=== PATIENT | male | born 1945 | race Caucasian/White ===

== ENCOUNTER 2017-09-17 00:47 | Observation (INO) ==
[2017-09-17 01:17] LABS: Microscopic, Urine URINE MICROSCOPIC (MICROSCOPIC)
[2017-09-17 01:18] LABS: Appearance,Urine CLEAR (Clear); Bilirubin,Urine Negative (Negative); Blood, Urine 2+ (Negative); Color,Urine YELLOW (Yellow); Glucose,Urine (UA) Negative (Negative); Ketones,Urine Negative (Negative); Leukocyte Esterase,Urine Negative (Negative); Protein,Urine Negative (Negative); Specific Gravity, Urine <= 1.005 (1.005-1.030); Urobilinogen,Urine 0.2 EU/dl (0.2)
[2017-09-17 01:19] LABS: Basophils # 0.1 K/mm3 (0-0.2); Basophils % 0.4 % (0.1-2.0); Eosinophils # 0.3 K/mm3 (0.0-0.4); Eosinophils % 2.5 % (0.1-12.0); Hematocrit 52.9 % (42.0-52.0); Hemoglobin 17.4 g/dL (14.1-18.0); Lymphocytes # 1.6 K/mm3 (0.7-4.5); Lymphocytes % 14.6 K/mm3 (10-50); Mean Corpuscular HGB Conc 32.8 g/dL (31.8-35.4); Mean Corpuscular Hemoglobin 30.5 pg (27.0-31.2); Mean Corpuscular Volume 92.9 fl (80-94); Mean Platelet Volume 7.1 fl (7.4-10.4); Monocytes # 0.8 K/mm3 (0.1-1.0); Neutrophils # 8.3 K/mm3 (1.8-7.8); Neutrophils % 75.5 % (37.0-80.0); Platelet Count 341 K/mm3 (142-424); Red Blood Count 5.69 M/mm3 (4.60-6.20); Red Cell Distribution Width 12.2 % (11.5-17.5)
[2017-09-17 01:41] LABS: Bacteria,Urine Trace /lpf; WBC,Urine Occasional #/hpf (0-3)
[2017-09-17 01:43] LABS: Alanine Aminotransferase 28 U/L (12-78); Albumin Level 4.3 gm/dL (3.4-5.0); Albumin/Globulin Ratio 1.3 (1.1-1.8); Alkaline Phosphatase 79 U/L (46-116); Anion Gap 12.5 mEq/L (5-15); Aspartate Amino Transferase 14 U/L (15-37); Bilirubin,Total 0.8 mg/dL (0.2-1.0); Blood Urea Nitrogen 5 mg/dL (7-18); Calcium 8.8 mg/dL (8.5-10.1); Carbon Dioxide 25 mmol/L (21.0-32.0); Chloride 94 mmol/L (98-107); Creatine Kinase 93 U/L (39-308); Globulin 3.2 gm/dl (1.3-3.2); Glucose 140 mg/dL (74-106); Potassium 3.5 mmoL/L (3.5-5.1); Sodium 128 mmol/L (136-145); Total Protein,Serum 7.5 gm/dL (6.4-8.2)
--- NOTE | 2017-09-17 03:44 | Emergency Department Note ---
ED Disposition Clinical Impression: Weakness, Acute urinary retention, Hyponatremia Disposition: Admitted as Observation Condition on Discharge: Fair - Critical Care Critical Care Time: No Attestation: On 09/17/17, the high probability of a clinically significant, sudden or life threatening deterioration of the following system(s) required my full and direct attention, intervention and personal management. The time I documented below is in addition to time spent performing reported procedures but includes the following listed in this critical care notation. Medical Decision Making - Medical Records Medical records reviewed: Yes: I reviewed the patient's medical records. - Dg Inquiry Pt receiving controlled substance: No Vital Signs: 09/17/17 00:48 09/17/17 03:03 Temperature 97.7 F Temperature Source Oral Pulse Rate [Right Radial] 106 H 90 Respiratory Rate 16 16 Blood Pressure [Right Arm] 195/99 145/93 Blood Pressure Mean [Right Arm] 131 110 Blood Pressure Source [Right Arm] Automatic Cuff Automatic Cuff Blood Pressure Position [Right Arm] Sitting Sitting 02 Sat by Pulse Oximetry 95 95 Oxygen Delivery Method Room Air Room Air - Lab Data Lab results reviewed: Yes: I reviewed the patient's lab results. Lab Results 09/17/17 01:02: Urine Color Yellow, Urine Appearance Clear, Urine pH 6.0, Ur Specific [place] <= 1.005, Urine Protein Negative, Urine Glucose (UA) Negative, Urine Ketones Negative, Urine Blood 2+, Urine Nitrate Negative, Urine Bilirubin Negative, Urine Urobilinogen 0.2, Ur Leukocyte Esterase Negative, Urine RBC 5-10 , Urine WBC Occasional, Urine Bacteria Trace 09/17/17 01:06: WBC 11.0 H, RBC 5.69, Hgb 17.4, Hct 52.9 H, MCV 92.9, MCH 30.5, MCHC 32.8, RDW 12.2, Plt Count 341, MPV 7.1 L, Neut % (Auto) 75.5, Lymph % (Auto ) 14.6, [place] % (Auto) 7.0, Eos % (Auto) 2.5, Baso % (Auto) 0.4, Neut # (Auto) 8.3 H, Lymph # (Auto) 1.6, [place] # (Auto) 0.8, Eos # (Auto) 0.3, Baso # (Auto) 0.1 09/17/17 01:06: Sodium 128 L, Potassium 3.5, Chloride 94 L, Carbon Dioxide 25, Anion Gap 12.5, BUN 5 L, Creatinine 0.78, Estimated Creat Clear 71, Estimated GFR 97, Est GFR ( Amer) 118, Glucose 140 H, Calcium 8.8, Total Bilirubin 0.8, AST 14 L, ALT 28, Alkaline Phosphatase 79, Total Creatine Kinase 93, CK-MB (CK-2) 0.7, CK-MB (CK-2) Rel Index 0.8, Troponin I < 0.02, Total Protein 7.5, Albumin 4.3, Globulin 3.2, Albumin/Globulin Ratio 1.3 09/17/17 01:06: TSH 4.93 H, Thyroxine (T4) 7.7 Result diagrams: 09/17/17 01:06 09/17/17 01:06 Orders (Tests/Meds): ED MEDICATIONS Generic Name Dose Route Start Last Admin Trade Name Freq PRN Reason Stop Dose Admin Sodium Chloride 1,000 mls @ 150 mls/hr 09/17/17 01:15 09/17/17 01:15 Sod Chlor 0.9% 1000ml Bag IV 10/17/17 01:14 150 mls/hr .[id number] APRIL Administration ORDERS Category Date Time Status CT head/brain wo con Stat Cat Scan 09/17/17 00:58 Taken 12-lead EKG Request [ECG Request by /Sonal] Stat Y 09/17/17 01:19 Stop Req - CT Data CT Scan: Head Time Received: 04:[address] Reviewed: Yes: I have viewed the radiologist's interpretation Preliminary Findings: Abnormal (chronic changes ) - ECG Data Tracing #1 I reviewed this ECG and interpreted as documented below: Normal Sinus Rhythm: Yes Ischemic changes: non-specific ST-T wave changes - Physician Consults Physician Consulted: bethel Reason -: Admission Weakness HPI - General Chief complaint: Weakness Stated complaint: AMS Time Seen by Provider: 09/17/17 03:42 Mode of Arrival: EMS Source of Information: Patient, EMS, Medical Record Limitations: memory loss Description of Symptoms (Recalled from ER Triage Doc. by RN): Daughter reports he called her saying he was weak, and she noticed he was more confused than usual. Abdominal distention noted. - History of Present Illness HPI Narrative: pt with hx of memory loss and weakness and unable to ambulate and called his daughter who found pt in poor condition and could not stand and had diff urinating with no def trauma - he has been off meds for months and has hx of prostate cancer /niddm/htn and dementia MD Complaint: generalized weakness, difficulty walking Onset (ago): day(s) Duration: constant Location: generalized Migration: none Severity: severe Associated symptoms: denies other symptoms - Related Data Home Medications Medication Instructions Recorded Confirmed No Known Home Medications 09/17/17 09/17/17 Allergies Allergy/AdvReac Type Severity Reaction Status Date / Time No Known Allergies Allergy Verified 09/17/17 00:57 [facility] History I have reviewed the patient's past medical history: Yes Medical History: Reports:: Diabetes Mellitus Type 2 - Social History Smoking Status: Current every day smoker Tobacco Type: cigarettes Alcohol Intake: former - Psychiatric History Expresses thoughts of harming self/others: None Suicide Plan Description: No Plan ROS Obtained: Yes All systems reviewed & no additional complaints - Constitutional Constitutional: Denies fever(s), Reports weakness - Eyes Eyes: Denies change in vision - ENT Ears, Nose, Mouth, and Throat: Denies headache(s), Denies sore throat - Cardiovascular Cardiovascular: Denies chest pain, Denies palpitations - Respiratory Respiratory: No cough, No coughing up blood - Gastrointestinal Gastrointestingal: Denies: abdominal pain - Genitourinary Male Genitourinary: Reports as per HPI, Reports difficulty urinating, Denies hematuria - Musculoskeletal Musculoskeletal: Reports as per HPI, Denies joint pain, Denies joint swelling - Integumentary/Breasts Skin/Breast: Denies rash - Neurologic Neurologic: Reports confusion, Denies seizure-like activity Physical Exam - General General appearance: in no apparent distress, other (disholved ) - Head Head exam: atraumatic - Eye Eye exam: Present: PERRL, EOMI. Absent: scleral icterus - ENT ENT exam: Present: mucous membranes dry - Neck Neck exam: Present: trachea midline - Respiratory Respiratory exam: Present: other (dec bs bilat ). Absent: respiratory distress - Cardiovascular Cardiovascular exam: Present: regular rate, systolic murmur, +S4 - Abdominal Exam Abdominal exam: Present: soft Abdominal tenderness: Present: moderate Comment: distended bladder - Extremities Exam Extremities exam: Present: other (sig chronic changes to feet bilat ). Absent: tenderness - Neurological Exam Neurological exam: Present: CN II-XII intact, other (ox1 -memory issue noted ). Absent: normal gait, reflexes normal - Skin Skin exam: Absent: rash
[2017-09-17 04:11] LABS: T4 (Thyroxine) 7.7 ug/dl (4.7-13.3); Thyroid Stimulating Hormone 4.93 uIU/ml (0.358-3.740)
[2017-09-17 06:14] LABS: Basophils % 0.4 % (0.1-2.0); Eosinophils # 0.3 K/mm3 (0.0-0.4); Eosinophils % 3.3 % (0.1-12.0); Hematocrit 50.8 % (42.0-52.0); Lymphocytes # 1.2 K/mm3 (0.7-4.5); Lymphocytes % 12.7 K/mm3 (10-50); Mean Corpuscular HGB Conc 33.4 g/dL (31.8-35.4); Mean Corpuscular Hemoglobin 31.5 pg (27.0-31.2); Mean Corpuscular Volume 94.4 fl (80-94); Mean Platelet Volume 7.2 fl (7.4-10.4); Monocytes # 0.5 K/mm3 (0.1-1.0); Monocytes % 5.2 % (1.7-9.3); Neutrophils # 7.3 K/mm3 (1.8-7.8); Neutrophils % 78.3 % (37.0-80.0); Platelet Count 323 K/mm3 (142-424); Red Blood Count 5.38 M/mm3 (4.60-6.20); Red Cell Distribution Width 12.4 % (11.5-17.5); White Blood Count 9.3 K/mm3 (4.8-10.8)
--- NOTE | 2017-09-17 07:31 | History & Physical Report ---
*Admission Date: 09/17/17 *Chief complaint: Confusion *History of present illness: 72-year-old male was brought to the emergency department yesterday by family after he was found to be confused and apparently was complaining of some urinary retention. History is essentially taken from the ER note as patient is confused this morning. I am able to obtain from the patient that he feels better now that his urinary retention has been relieved and a Olivier catheter is in place. There is an apparent diagnosis of associated prostate cancer although the patient denies this claiming that was his father who had cancer. Patient is unknown to me and there is a single note in the hospital electronic medical record where the patient saw urologist in April 2016 due to a markedly elevated PSA. [facility] History I have reviewed the patient's past medical history: Yes Medical History: Reports:: Cancer, Diabetes Mellitus Type 2 Denies:: Diabetes Mellitus Type 1, MRSA Other Surgeries: Yes: Other (hernia surgery) Amputation: No Fractures: No - *Social History Educational Level: Attended High School Smoking Status: Current every day smoker Tobacco Type: cigarettes #Yrs smoked (if former smoker): 60 Alcohol Intake: former Occupational Status: retired Housing: other Household Members: none - Psychiatric History Expresses thoughts of harming self/others: None Suicide Plan Description: No Plan *Family Hx:: Unable to obtain Review of Systems - Review of Systems Review of systems:: unable to obtain - Constitutional Denies chills, Denies fever(s) - *Respiratory Denies cough, Denies shortness of breath - *Neurologic Reports confusion, Reports weakness, Denies headache(s), Denies seizure-like activity Meds Home Medications Medication Instructions Recorded Confirmed Type No Known Home Medications 09/17/17 09/17/17 History Allergies Allergy/AdvReac Type Severity Reaction Status Date / Time No Known Allergies Allergy Verified 09/17/17 00:57 Exam Vital signs and Labs for Last 24 Hours: Temp Pulse Resp BP Pulse Ox 0 F L 84 18 140/90 94 L 09/17/17 05:07 09/17/17 05:07 09/17/17 05:07 09/17/17 05:07 09/17/17 04:59 Laboratory Results - last 24 hr 09/17/17 01:02: Urine Color Yellow, Urine Appearance Clear, Urine pH 6.0, Ur Specific [place] <= 1.005, Urine Protein Negative, Urine Glucose (UA) Negative, Urine Ketones Negative, Urine Blood 2+, Urine Nitrate Negative, Urine Bilirubin Negative, Urine Urobilinogen 0.2, Ur Leukocyte Esterase Negative, Urine RBC 5-10 , Urine WBC Occasional, Urine Bacteria Trace 09/17/17 01:06: WBC 11.0 H, RBC 5.69, Hgb 17.4, Hct 52.9 H, MCV 92.9, MCH 30.5, MCHC 32.8, RDW 12.2, Plt Count 341, MPV 7.1 L, Neut % (Auto) 75.5, Lymph % (Auto ) 14.6, [place] % (Auto) 7.0, Eos % (Auto) 2.5, Baso % (Auto) 0.4, Neut # (Auto) 8.3 H, Lymph # (Auto) 1.6, [place] # (Auto) 0.8, Eos # (Auto) 0.3, Baso # (Auto) 0.1 09/17/17 01:06: Sodium 128 L, Potassium 3.5, Chloride 94 L, Carbon Dioxide 25, Anion Gap 12.5, BUN 5 L, Creatinine 0.78, Estimated Creat Clear 71, Estimated GFR 97, Est GFR ( Amer) 118, Glucose 140 H, Calcium 8.8, Total Bilirubin 0.8, AST 14 L, ALT 28, Alkaline Phosphatase 79, Total Creatine Kinase 93, CK-MB (CK-2) 0.7, CK-MB (CK-2) Rel Index 0.8, Troponin I < 0.02, Total Protein 7.5, Albumin 4.3, Globulin 3.2, Albumin/Globulin Ratio 1.3 09/17/17 01:06: TSH 4.93 H, Thyroxine (T4) 7.7 09/17/17 01:06: Hemoglobin A1c 5.9 09/17/17 06:03: WBC 9.3, RBC 5.38, Hgb 17.0, Hct 50.8, MCV 94.4 H, MCH 31.5 H, MCHC 33.4, RDW 12.4, Plt Count 323, MPV 7.2 L, Neut % (Auto) 78.3, Lymph % (Auto ) 12.7, [place] % (Auto) 5.2, Eos % (Auto) 3.3, Baso % (Auto) 0.4, Neut # (Auto) 7.3, Lymph # (Auto) 1.2, [place] # (Auto) 0.5, Eos # (Auto) 0.3, Baso # (Auto) 0.0 09/17/17 06:03: Magnesium 2.2, Troponin I < 0.02 I & O for Last 24 hours: Intake & Output 09/14/17 09/15/17 09/16/17 09/17/17 11:59 11:59 11:59 11:59 Output Total 4700 / 4700 Balance -4700 / -4700 Weight 180 lb Narrative: Patient is awake this morning. He is confused. He does not answer questions directly. For instance when the patient was asked if he knew where he was he started referencing the blankets on his bed. He admits he does not know the year or the day of the week. He claims to live alone. Heart has a regular rate and rhythm. Lungs are auscultation. Abdomen is soft and nontender. Olivier catheter is in place. Patient has active range of motion of all extremities. H&P: Result - Labs Labs: Short CBC 09/17/17 09/17/17 Range/Units 01:06 06:03 WBC 11.0 H 9.3 (4.8-10.8) K/mm3 Hgb 17.4 17.0 (14.1-18.0) g/dL Hct 52.9 H 50.8 (42.0-52.0) % Plt Count 341 323 (142-424) K/mm3 BMP 09/17/17 01:06 Sodium 128 L Potassium 3.5 Chloride 94 L Carbon Dioxide 25 BUN 5 L Creatinine 0.78 Glucose 140 H Calcium 8.8 Cardiac Enzymes 09/17/17 09/17/17 Range/Units 01:06 06:03 Total Creatine Kinase 93 (39-308) U/L CK-MB (CK-2) 0.7 (0.0-3.6) ng/ml Troponin I < 0.02 < 0.02 (0.00-0.06) ng/ml Liver Function 09/17/17 Range/Units 01:06 Total Bilirubin 0.8 (0.2-1.0) mg/dL AST 14 L (15-37) U/L ALT 28 (12-78) U/L Alkaline Phosphatase 79 (46-116) U/L Albumin 4.3 (3.4-5.0) gm/dL Urine 09/17/17 Range/Units 01:02 Urine Color Yellow (Yellow) Urine Appearance Clear (Clear) Urine pH 6.0 (5.0-8.5) Ur Specific [place] <= 1.005 (1.005-1.030) Urine Protein Negative (Negative) Urine Glucose (UA) Negative (Negative) Assessment and Plan (1) Acute urinary retention Current visit: Yes Status: Acute Category: Medical Code(s): R33.8 - Other retention of urine (2) Prostate cancer Current visit: Yes Status: Suspected Category: Medical Code(s): C61 - Malignant neoplasm of prostate (3) Hyponatremia Current visit: Yes Status: Acute Category: Medical Code(s): E87.1 - Hypo- osmolality and hyponatremia (4) Weakness Current visit: Yes Status: Acute Category: Medical Code(s): R53.1 - Weakness - Assessment and plan all Dx Assessment and Plan for all problems:: 1. Continue IV fluids and await repeat sodium level 2. We will attempt to contact family to clarify some of the patient's history and will review any office notes I have. Patient claims that Dr. Plummer is his physician although he was referred to the urologist by my nurse practitioner.
--- NOTE | 2017-09-17 07:32 | Pharmacy Consult Notes ---
[facility] Pharmacy VTE Monitoring - Patient Demographics Admission date: 09/17/17 Report Date: 09/17/17 Time: 07:31 Allergies/Adverse Reactions: Patient Allergies No Known Allergies Allergy (Verified 09/17/17 00:57) Height: 1.75 m Weight: 81.647 kg Patient Problems: Current Active Problems Weakness (Acute) Acute urinary retention (Acute) Hyponatremia (Acute) - VTE Risk Labs: VTE Related Lab Results Hgb 17.0 g/dL (14.1-18.0) 09/17/17 06:03 Hct 50.8 % (42.0-52.0) 09/17/17 06:03 Plt Count 323 K/mm3 (142-424) 09/17/17 06:03 BUN 5 mg/dL (7-18) L 09/17/17 01:06 Creatinine 0.78 mg/dL (0.70-1.30) 09/17/17 01:06 Estimated Creat Clear 71 mL/min (0-300) 09/17/17 01:06 Was VTE Risk Assessment Performed: Yes VTE Score: 1 VTE Risk Level: Very Low Risk - Prophylaxis VTE Prophylaxis Ordered?: Yes Types of VTE Prophylaxis: TEDS Knee High Location of Applied Device: Bilateral Lower Extremeties - VTE Diagnosis Confirmed Treatment or plan recommended: Continue Current Treatment
--- NOTE | 2017-09-17 08:12 | Consult Report ---
*Admission Date: 09/17/17 *Chief complaint: Onychogryphosis *History of present illness: Per Dr. Carvalho: 72-year-old male was brought to the emergency department yesterday by family after he was found to be confused and apparently was complaining of some urinary retention. History is essentially taken from the ER note as patient is confused this morning. I am able to obtain from the patient that he feels better now that his urinary retention has been relieved and a Olivier catheter is in place. There is an apparent diagnosis of associated prostate cancer although the patient denies this claiming that was his father who had cancer. Patient is unknown to me and there is a single note in the hospital electronic medical record where the patient saw urologist in April 2016 due to a markedly elevated PSA. Podiatry consult for severe dry skin, onychogryphosis. Patient is a poor historian with no family at bedside. He is unable to disclose past medical history, ulcer history, PVD intervention, etc. There is no LE issues documented in the previous medical records. Review of Systems - Review of Systems Review of systems:: unable to obtain - *Cardiovascular Denies shortness of breath - *Respiratory Denies shortness of breath - *Neurologic Reports confusion, Reports weakness, Denies headache(s), Denies seizure-like activity [facility] History I have reviewed the patient's past medical history: Yes Medical History: Reports:: Cancer, Diabetes Mellitus Type 2 Denies:: Diabetes Mellitus Type 1, MRSA Other Surgeries: Yes: Other (hernia surgery) Amputation: No Fractures: No - *Social History Educational Level: Attended High School Smoking Status: Current every day smoker Tobacco Type: cigarettes #Yrs smoked (if former smoker): 60 Alcohol Intake: former Occupational Status: retired Housing: other Household Members: none - Psychiatric History Expresses thoughts of harming self/others: None Suicide Plan Description: No Plan *Family Hx:: Unable to obtain Meds Home Medications Medication Instructions Recorded Confirmed Type No Known Home Medications 09/17/17 09/17/17 History Allergies Allergy/AdvReac Type Severity Reaction Status Date / Time No Known Allergies Allergy Verified 09/17/17 00:57 Exam Vital signs and Labs for Last 24 Hours: Temp Pulse Resp BP Pulse Ox 97.1 F L 93 H 18 156/64 95 09/17/17 07:35 09/17/17 07:35 09/17/17 07:35 09/17/17 07:35 09/17/17 07:35 Laboratory Results - last 24 hr 09/17/17 01:02: Urine Color Yellow, Urine Appearance Clear, Urine pH 6.0, Ur Specific [place] <= 1.005, Urine Protein Negative, Urine Glucose (UA) Negative, Urine Ketones Negative, Urine Blood 2+, Urine Nitrate Negative, Urine Bilirubin Negative, Urine Urobilinogen 0.2, Ur Leukocyte Esterase Negative, Urine RBC 5-10 , Urine WBC Occasional, Urine Bacteria Trace 09/17/17 01:06: WBC 11.0 H, RBC 5.69, Hgb 17.4, Hct 52.9 H, MCV 92.9, MCH 30.5, MCHC 32.8, RDW 12.2, Plt Count 341, MPV 7.1 L, Neut % (Auto) 75.5, Lymph % (Auto ) 14.6, [place] % (Auto) 7.0, Eos % (Auto) 2.5, Baso % (Auto) 0.4, Neut # (Auto) 8.3 H, Lymph # (Auto) 1.6, [place] # (Auto) 0.8, Eos # (Auto) 0.3, Baso # (Auto) 0.1 09/17/17 01:06: Sodium 128 L, Potassium 3.5, Chloride 94 L, Carbon Dioxide 25, Anion Gap 12.5, BUN 5 L, Creatinine 0.78, Estimated Creat Clear 71, Estimated GFR 97, Est GFR ( Amer) 118, Glucose 140 H, Calcium 8.8, Total Bilirubin 0.8, AST 14 L, ALT 28, Alkaline Phosphatase 79, Total Creatine Kinase 93, CK-MB (CK-2) 0.7, CK-MB (CK-2) Rel Index 0.8, Troponin I < 0.02, Total Protein 7.5, Albumin 4.3, Globulin 3.2, Albumin/Globulin Ratio 1.3 09/17/17 01:06: TSH 4.93 H, Thyroxine (T4) 7.7 09/17/17 01:06: Hemoglobin A1c 5.9 09/17/17 06:03: WBC 9.3, RBC 5.38, Hgb 17.0, Hct 50.8, MCV 94.4 H, MCH 31.5 H, MCHC 33.4, RDW 12.4, Plt Count 323, MPV 7.2 L, Neut % (Auto) 78.3, Lymph % (Auto ) 12.7, [place] % (Auto) 5.2, Eos % (Auto) 3.3, Baso % (Auto) 0.4, Neut # (Auto) 7.3, Lymph # (Auto) 1.2, [place] # (Auto) 0.5, Eos # (Auto) 0.3, Baso # (Auto) 0.0 09/17/17 06:03: Magnesium 2.2, Troponin I < 0.02 I & O for Last 24 hours: Intake & Output 09/14/17 09/15/17 09/16/17 09/17/17 11:59 11:59 11:59 11:59 Intake Total 0 / 0 Output Total 4700 / 4700 Balance -4700 / -4700 Weight 180 lb - *Routine HEENT Exam Head: Present: normocephalic - *Routine Neck Exam Present: supple. Absent: JVD - *Routine Respiratory Exam Absent: respiratory distress - *Routine Cardiovascular Exam Absent: JVD - *Routine Abdominal Exam Present: soft. Absent: guarding - *Routine Rectal Exam Patient deferred: visual exam - *Routine Exam Patient deferred: penile exam - *Routine Extremities Exam Present: pulses intact (weakly, 1+ b/l), normal capillary refill. Absent: amputation - *Routine Skin Exam Present: dry, cracked. Absent: erythema, scars, wounds, gangrene - *Routine Neurological Exam Present: moving all extremities. Absent: oriented X3, normal tone - Detailed Lower Extremity Exam Foot/Toes: Bilateral onychomycosis Comments: Patient unable to tell me if he is having pain or symptoms. The toenails 1-10 are over 5-8mm thick and the length is so long the nails are curving laterally and curling under the toes. No POP. 1+ palpable pulses b/l. Severe flaking skin crusted with dirt. No open lesions. Cracking to both heels. No SOI. Unable to respond to do muscle strength testing. B/l LE thin with distal muscle atrophy. Both legs bend at knee and contracted under him Results - Labs Result Diagrams: 09/17/17 06:03 09/17/17 06:03 Labs: Abnormal lab results 09/17/17 09/17/17 09/17/17 Range/Units 01:06 01:06 01:06 WBC 11.0 H (4.8-10.8) K/mm3 Hct 52.9 H (42.0-52.0) % MCV (80-94) fl MCH (27.0-31.2) pg MPV 7.1 L (7.4-10.4) fl Neut # (Auto) 8.3 H (1.8-7.8) K/mm3 Sodium 128 L (136-145) mmol/L Chloride 94 L (98-107) mmol/L BUN 5 L (7-18) mg/dL Glucose 140 H (74-106) mg/dL AST 14 L (15-37) U/L TSH 4.93 H (0.358-3.740) uIU/ml 09/17/17 Range/Units 06:03 WBC (4.8-10.8) K/mm3 Hct (42.0-52.0) % MCV 94.4 H (80-94) fl MCH 31.5 H (27.0-31.2) pg MPV 7.2 L (7.4-10.4) fl Neut # (Auto) (1.8-7.8) K/mm3 Sodium (136-145) mmol/L Chloride (98-107) mmol/L BUN (7-18) mg/dL Glucose (74-106) mg/dL AST (15-37) U/L TSH (0.358-3.740) uIU/ml H & H 09/17/17 09/17/17 Range/Units 01:06 06:03 Hgb 17.4 17.0 (14.1-18.0) g/dL Hct 52.9 H 50.8 (42.0-52.0) % All other labs normal. Assessment and Plan (1) Acute urinary retention Current visit: Yes Status: Acute Category: Medical Code(s): R33.8 - Other retention of urine (2) Prostate cancer Current visit: Yes Status: Suspected Category: Medical Code(s): C61 - Malignant neoplasm of prostate (3) Hyponatremia Current visit: Yes Status: Acute Category: Medical Code(s): E87.1 - Hypo- osmolality and hyponatremia (4) Weakness Current visit: Yes Status: Acute Category: Medical Code(s): R53.1 - Weakness (5) Onychogryphosis Current visit: Yes Status: Acute Category: Medical Code(s): L60.2 - Onychogryphosis (6) Keratosis Current visit: Yes Status: Acute Category: Medical Code(s): L57.0 - Actinic keratosis - Assessment and plan all Dx Assessment and Plan for all problems:: Onychogryphosis and keratosis b/l: Patient lives alone and does not trim his toenails. It looks as if the nails have not been cut for > 6 months and the feet have not been washed for some time. TOENAIL TRIM: 1. Nails were debrided xs 10 utilizing manual debridement with a nail nipper. 2. Patient tolerated the procedure well. 3. Recommend the use of lance board to file nails down and keep thinner. Patient does not understand. 4. Needs routine foot care at SNF. 5. Recommend soaking the feet in epsom salts and warm water to remove dry skin. 6. Patient would benefit from daily application of Urea cream, but unable to apply himself. 7. Follow up as needed
[2017-09-17 08:23] LABS: Sodium 137 mmol/L (136-145)
[2017-09-17 08:24] LABS: Anion Gap 11.9 mEq/L (5-15); Blood Urea Nitrogen 4 mg/dL (7-18); Calcium 8.7 mg/dL (8.5-10.1); Carbon Dioxide 26 mmol/L (21.0-32.0); Chloride 103 mmol/L (98-107); Glucose 141 mg/dL (74-106); Potassium 3.9 mmoL/L (3.5-5.1)
--- NOTE | 2017-09-18 06:54 | Progress Note ---
Internal Medicine - PN: Kelly *Date: 09/18/17 *Time: 06:58 Interval history: Patient reports no problems overnight. Nursing staff reports some difficulty with the patient early in shift but after Haldol he became less agitated and slept the majority of the night. Exam Vital signs and Labs for Last 24 Hours: Temp Pulse Resp BP Pulse Ox 98.1 F 90 22 121/55 90 L 09/18/17 03:44 09/18/17 03:44 09/18/17 03:44 09/18/17 03:44 09/18/17 03:44 Laboratory Results - last 24 hr 09/17/17 06:03: Sodium 137, Potassium 3.9, Chloride 103, Carbon Dioxide 26, Anion Gap 11.9, BUN 4 L, Creatinine 0.72, Estimated Creat Clear 75, Estimated GFR 107, Est GFR ( Amer) 129, Glucose 141 H, Calcium 8.7, Magnesium 2.2, Troponin I < 0.02 I & O for Last 24 hours: Intake & Output 09/15/17 09/16/17 09/17/17 09/18/17 11:59 11:59 11:59 11:59 Intake Total 0 / 0 240 / 240 Output Total 4700 / 4700 3750 / 3750 Balance -4700 / -4700 -3510 / -3510 Weight 180 lb Narrative: He appears comfortable this morning. He is noted to have a minor cough. Lungs are clear to auscultation. Abdomen is soft. Olivier catheter remains in place Assessment and Plan (1) Acute urinary retention Current visit: Yes Status: Acute Category: Medical Code(s): R33.8 - Other retention of urine (2) Prostate cancer Current visit: Yes Status: Chronic Category: Medical Code(s): C61 - Malignant neoplasm of prostate (3) Hyponatremia Current visit: Yes Status: Acute Category: Medical Code(s): E87.1 - Hypo- osmolality and hyponatremia (4) Weakness Current visit: Yes Status: Acute Category: Medical Code(s): R53.1 - Weakness (5) Onychogryphosis Current visit: Yes Status: Acute Category: Medical Code(s): L60.2 - Onychogryphosis (6) Keratosis Current visit: Yes Status: Acute Category: Medical Code(s): L57.0 - Actinic keratosis - Assessment and plan all Dx Assessment and Plan for all problems:: 1. Due to patient's underlying dementia he is going to need placement. Care management team is addressing this issue. 2. Patient's dementia is causing some agitated behaviors. This does respond well to Haldol. I am going to start the patient on Risperdal this morning 3. Maintain Olivier catheter. 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 He will likely need placement of a permanent suprapubic catheter in the near future. His urologist is Dr. Ojeda
--- NOTE | 2017-09-18 07:31 | Discharge Summary ---
General - General Admission date:: 09/17/17 Discharge date: 09/18/17 HPI HPI: Per Dr. Carvalho: 72-year-old male was brought to the emergency department yesterday by family after he was found to be confused and apparently was complaining of some urinary retention. History is essentially taken from the ER note as patient is confused this morning. I am able to obtain from the patient that he feels better now that his urinary retention has been relieved and a Olivier catheter is in place. There is an apparent diagnosis of associated prostate cancer although the patient denies this claiming that was his father who had cancer. Patient is unknown to me and there is a single note in the hospital electronic medical record where the patient saw urologist in April 2016 due to a markedly elevated PSA. Hospital Course Hospital Course: After initial presents to the emergency department patient had a Olivier catheter placed with relief of urinary obstruction. Olivier catheter was maintained and he will need this indefinitely due to his prostate cancer. More permanent catheter such as suprapubic catheter be placed in the future. Previously he saw Dr. Ojeda of urology. Patient had hyponatremia upon admission. He was placed on IV fluids and by the following morning his hyponatremia had corrected. Patient has underlying dementia which did present some challenges while hospitalized including some agitation and uncooperative behaviors. Patient was given Haldol when he became extremely agitated and responded to this. He was started on Risperdal 0.5 mg twice daily on September 18. Because of the patient's dementia it was felt he was unable to care for himself properly at home. While hospitalized physical therapy ablated the patient and felt he was appropriate for rehab at halfway facility. There is a good chance patient will need long-term care as well. Care management was consulted. Patient was accepted at [facility]. Patient was noted to have a cough. Chest x-ray was performed which showed chronic changes. Rehab Potential: Fair Prognosis: fair MentalStatus : below average(oriented to person) Objective Vital signs: Temp Pulse Resp BP Pulse Ox 98.1 F 90 22 121/55 90 L 09/18/17 03:44 09/18/17 03:44 09/18/17 03:44 09/18/17 03:44 09/18/17 03:44 Results Labs on day of discharge: Labs from last 24 hours 09/17/17 06:03 Sodium 137 Potassium 3.9 Chloride 103 Carbon Dioxide 26 Anion Gap 11.9 BUN 4 L Creatinine 0.72 Estimated Creat Clear 75 Estimated GFR 107 Est GFR ( Amer) 129 Glucose 141 H Calcium 8.7 Magnesium 2.2 Troponin I < 0.02 Laboratory Tests 09/17/17 09/17/17 09/17/17 01:02 01:06 01:06 WBC 11.0 H RBC 5.69 Hgb 17.4 Hct 52.9 H MCV 92.9 MCH 30.5 MCHC 32.8 RDW 12.2 Plt Count 341 MPV 7.1 L Neut % (Auto) 75.5 Lymph % (Auto) 14.6 [place] % (Auto) 7.0 Eos % (Auto) 2.5 Baso % (Auto) 0.4 Neut # (Auto) 8.3 H Lymph # (Auto) 1.6 [place] # (Auto) 0.8 Eos # (Auto) 0.3 Baso # (Auto) 0.1 Sodium 128 L Potassium 3.5 Chloride 94 L Carbon Dioxide 25 Anion Gap 12.5 BUN 5 L Creatinine 0.78 Estimated Creat Clear 71 Estimated GFR 97 Est GFR ( Amer) 118 Glucose 140 H Hemoglobin A1c Calcium 8.8 Magnesium Total Bilirubin 0.8 AST 14 L ALT 28 Alkaline Phosphatase 79 Total Creatine Kinase 93 CK-MB (CK-2) 0.7 CK-MB (CK-2) Rel Index 0.8 Troponin I < 0.02 Total Protein 7.5 Albumin 4.3 Globulin 3.2 Albumin/Globulin Ratio 1.3 TSH Thyroxine (T4) Urine Color Yellow Urine Appearance Clear Urine pH 6.0 Ur Specific [place] <= 1.005 Urine Protein Negative Urine Glucose (UA) Negative Urine Ketones Negative Urine Blood 2+ Urine Nitrate Negative Urine Bilirubin Negative Urine Urobilinogen 0.2 Ur Leukocyte Esterase Negative Urine RBC 5-10 Urine WBC Occasional Urine Bacteria Trace 09/17/17 09/17/17 09/17/17 01:06 01:06 06:03 WBC 9.3 RBC 5.38 Hgb 17.0 Hct 50.8 MCV 94.4 H MCH 31.5 H MCHC 33.4 RDW 12.4 Plt Count 323 MPV 7.2 L Neut % (Auto) 78.3 Lymph % (Auto) 12.7 [place] % (Auto) 5.2 Eos % (Auto) 3.3 Baso % (Auto) 0.4 Neut # (Auto) 7.3 Lymph # (Auto) 1.2 [place] # (Auto) 0.5 Eos # (Auto) 0.3 Baso # (Auto) 0.0 Sodium Potassium Chloride Carbon Dioxide Anion Gap BUN Creatinine Estimated Creat Clear Estimated GFR Est GFR ( Amer) Glucose Hemoglobin A1c 5.9 Calcium Magnesium Total Bilirubin AST ALT Alkaline Phosphatase Total Creatine Kinase CK-MB (CK-2) CK-MB (CK-2) Rel Index Troponin I Total Protein Albumin Globulin Albumin/Globulin Ratio TSH 4.93 H Thyroxine (T4) 7.7 Urine Color Urine Appearance Urine pH Ur Specific [place] Urine Protein Urine Glucose (UA) Urine Ketones Urine Blood Urine Nitrate Urine Bilirubin Urine Urobilinogen Ur Leukocyte Esterase Urine RBC Urine WBC Urine Bacteria 09/17/17 06:03 WBC RBC Hgb Hct MCV MCH MCHC RDW Plt Count MPV Neut % (Auto) Lymph % (Auto) [place] % (Auto) Eos % (Auto) Baso % (Auto) Neut # (Auto) Lymph # (Auto) [place] # (Auto) Eos # (Auto) Baso # (Auto) Sodium 137 Potassium 3.9 Chloride 103 Carbon Dioxide 26 Anion Gap 11.9 BUN 4 L Creatinine 0.72 Estimated Creat Clear 75 Estimated GFR 107 Est GFR ( Amer) 129 Glucose 141 H Hemoglobin A1c Calcium 8.7 Magnesium 2.2 Total Bilirubin AST ALT Alkaline Phosphatase Total Creatine Kinase CK-MB (CK-2) CK-MB (CK-2) Rel Index Troponin I < 0.02 Total Protein Albumin Globulin Albumin/Globulin Ratio TSH Thyroxine (T4) Urine Color Urine Appearance Urine pH Ur Specific [place] Urine Protein Urine Glucose (UA) Urine Ketones Urine Blood Urine Nitrate Urine Bilirubin Urine Urobilinogen Ur Leukocyte Esterase Urine RBC Urine WBC Urine Bacteria DS: Diagnosis - Discharge Diagnosis (1) Acute urinary retention Status: Acute (2) Prostate cancer Status: Chronic (3) Hyponatremia Status: Acute (4) Weakness Status: Acute (5) Onychogryphosis Status: Acute (6) Keratosis Status: Acute (7) Subclinical hypothyroidism Status: Acute (8) Dementia Status: Acute Discharge Plan - Patient Discharge Instructions ACTIVITY: Continue current activity DIET: continue same diet - Follow up Plan Disposition: er [facility] Prescriptions/Medication Reconciliation: No Action No Known Home Medications
[2017-09-18 08:14] VITALS: BP 122/58
== END 2017-09-18 13:12 ==
LOC: ER 00:47 → 2ND 00:47
PROVIDERS: ADMIT Internal Medicine Adolescent Medicine; ATTEND Family Medicine
CPT/HCPCS: 70450; 71010; 71045; 80048; 80053; 81001; 82550; 82553; 82962; 83036; 83735; 84153; 84154; 84436; 84443; 84484; 85025; 93005; 96365; 97116; 97162; 97166; 98960; 99285; G0378

== ENCOUNTER 2017-10-12 13:54 | Inpatient (IN) ==
--- NOTE | 2017-10-12 15:27 | Emergency Department Note ---
ED Disposition Clinical Impression: Right lower lobe pneumonia, UTI (urinary tract infection), Cholelithiasis, Systemic inflammatory response syndrome (SIRS), Bladder neck obstruction Disposition: Still a Patient Condition on Discharge: Fair Instructions: DI for Acute Abdomen, DI for Altered Mental Status Referrals: Chencho Hamilton MD [Primary Care Provider] - - Critical Care Critical Care Time: No Attestation: On 10/12/17, the high probability of a clinically significant, sudden or life threatening deterioration of the following system(s) required my full and direct attention, intervention and personal management. The time I documented below is in addition to time spent performing reported procedures but includes the following listed in this critical care notation. Medical Decision Making - Dg Inquiry Pt receiving controlled substance: No Dg was queried for this patient: No Vital Signs: 10/12/17 13:56 10/12/17 14:26 10/12/17 15:00 Temperature 101.2 F H Temperature Source Rectal Pulse Rate [Right Brachial] 125 H 126 H 125 H Respiratory Rate 24 20 Blood Pressure [Right Arm] 105/52 118/54 98/48 Blood Pressure Mean [Right Arm] 69 75 64 Blood Pressure Source [Right Arm] Automatic Cuff Automatic Cuff Automatic Cuff Blood Pressure Position [Right Arm] Supine Sitting Sitting 02 Sat by Pulse Oximetry 96 95 97 Oxygen Delivery Method Non-Rebreather Nasal Cannula Nasal Cannula Oxygen Flow Rate (LPM) 15 4 4 10/12/17 15:30 10/12/17 16:00 10/12/17 16:14 Temperature 102.4 F H Temperature Source Rectal Pulse Rate [Right Brachial] 135 H 115 H 116 H Respiratory Rate 20 20 Blood Pressure [Right Arm] 100/52 82/47 112/55 Blood Pressure Mean [Right Arm] 68 58 74 Blood Pressure Source [Right Arm] Automatic Cuff Automatic Cuff Automatic Cuff Blood Pressure Position [Right Arm] Supine Sitting Sitting 02 Sat by Pulse Oximetry 94 L 93 L 95 Oxygen Delivery Method Nasal Cannula Nasal Cannula Nasal Cannula Oxygen Flow Rate (LPM) 4 2 4 - Lab Data Lab Results 10/12/17 14:08: POC Glucose 407 H* 10/12/17 14:36: Lactic Acid 2.6 H 10/12/17 15:30: Urine Color Yellow, Urine Appearance Turbid, Urine pH 6.0, Ur Specific [place] 1.015, Urine Protein 2+, Urine Glucose (UA) 3+, Urine Ketones Trace, Urine Blood 3+, Urine Nitrate Negative, Urine Bilirubin Negative, Urine Urobilinogen 0.2, Ur Leukocyte Esterase 2+ A, Urine WBC Tntc, Urine Bacteria 4+ 10/12/17 16:01: WBC 35.8 H*, RBC 4.61, Hgb 14.6, Hct 43.5, MCV 94.4 H, MCH 31.7 H, MCHC 33.6, RDW 12.7, Plt Count 346, MPV 7.3 L, Neut % (Auto) 95.0 H, Lymph % (Auto) 0.8 L, [place] % (Auto) 2.2, Eos % (Auto) 1.9, Baso % (Auto) 0.1, Neut # ( Auto) 34.0 H, Lymph # (Auto) 0.3 L, [place] # (Auto) 0.8, Eos # (Auto) 0.7 H, Baso # (Auto) 0.0, Total Counted 100, Neutrophils % (Manual) 96 H, Lymphocytes % ( Manual) 1 L, Monocytes % (Manual) 3, Platelet Estimate Normal, RBC Morphology Normal 10/12/17 16:01: Sodium 129 L, Potassium 4.0, Chloride 95 L, Carbon Dioxide 22, Anion Gap 16.0 H, BUN 59 H, Creatinine 4.16 H, Estimated Creat Clear 19, Estimated GFR 14 L*, Est GFR ( Amer) 17 L*, Glucose 379 H, Calcium 8.6, Total Bilirubin 0.7, AST 12 L, ALT 29, Alkaline Phosphatase 91, Total Protein 5.9 L, Albumin 2.1 L, Globulin 3.8 H, Albumin/Globulin Ratio 0.6 L Result diagrams: 10/12/17 16:01 10/12/17 16:01 Orders (Tests/Meds): ED MEDICATIONS Generic Name Dose Route Start Last Admin Trade Name Freq PRN Reason Stop Dose Admin Ertapenem 1 gm/ Sodium 50 mls @ 100 mls/hr 10/12/17 16:00 10/12/17 16:09 Chloride IV 10/26/17 15:59 100 mls/hr Q24H APRIL Administration Protocol Levofloxacin/Dextrose 750 mg in 150 mls @ 100 mls/hr 10/12/17 16:00 Levofloxacin 750mg/150ml Premix IV 10/26/17 15:59 Q24H APRIL Protocol Sodium Chloride 1,000 mls @ 999 mls/hr 10/12/17 16:15 10/12/17 16:10 Sod Chlor 0.9% 1000ml Bag IV 10/12/17 17:15 999 mls/hr .Q1H1M APRIL Administration Sodium Chloride 1,000 mls @ 999 mls/hr 10/12/17 16:15 Sod Chlor 0.9% 1000ml Bag IV 10/12/17 17:15 .Q1H1M APRIL Discontinued Medications Generic Name Dose Route Start Last Admin Trade Name Freq PRN Reason Stop Dose Admin Acetaminophen 650 mg 10/12/17 15:41 10/12/17 15:49 Acetaminophen 650mg Suppository RC 10/12/17 15:42 650 mg ONCE ONE Administration ORDERS Category Date Time Status Lactic Acid Follow Up (4 hr) Stat Lab 10/12/17 15:05 Ordered Blood Culture Stat Micro 10/12/17 14:36 Received Urine Culture Stat Micro 10/12/17 15:43 Ordered 12-lead EKG Request [ECG Request by /Sonal] Stat Y 10/12/17 15:43 Ordered - Radiology Data #1 Image(s): Chest Image Reviewed: Yes I reviewed the patient's radiology image, Yes I have reviewed radiologist's interpretation Preliminary Findings: Abnormal COPD with right lower lobe pneumonia with small effusion - CT Data CT Scan: Head, Abdomen, Pelvis Time Received: 16:33 Preliminary Findings: Abnormal Findings Narrative: IMPRESSION: 1. Enlarged prostate. Eckert catheter bulb is within the area of the prosthetic urethra. The tip of the Eckert catheter is not appear to be in the urinary bladder. There is distention of the urinary bladder with the top of the urinary bladder at the level of the umbilicus. 2. Right lower lobe pneumonia with small effusion. 3. Cholelithiasis with possible escaped gallstone versus calcification of the gallbladder itself. 4. Bilateral hydronephrosis and hydroureter with small amount fluid in the paracolic gutters on both sides - ECG Data Tracing #1 Sinus tachycardia 1 32/min baseline artifact no acute findings ECG initial impression date: 10/12/17 ECG initial impression time: 14:05 Medical Decision Narrative: I discussed with the family his presentation most likely infection with a systemic inflammatory response. We discussed the about his DNR status. After obtaining his labs and CT reports I called Dr. Shipman who agreed to admit the patient on behalf of Dr. Hamilton. Cassy Hamilton's nurse practitioner be around him and she is updated. Dr. Carvalho was contacted and he would like to take over care of this patient due to prior knowledge of him. Altered Mental Status HPI - General Chief Complaint: Abdominal Pain Stated Complaint: Altered Mental sTatus Time Seen by Provider: 10/12/17 14:00 Mode of Arrival: EMS Limitations: Altered Mental Status Description of Symptoms (Recalled from ER Triage Doc. by RN): nsg home called report. states pt unresponsive, hx of prostate cancer. upon arrival with ems pt is noted to have thick purulent type drainage in eckert cath. pt has hard palpable not at lower abdomen, around bladder area. pt received 700ml of fluid enroute. pt is on nrb at this time. pt will occassionally moan in discomfort. - History of Present Illness HPI narrative: 72 years old white male with history of dementia and psychosis and prostatic cancer. He was admitted on September 17 due to acute renal retention and UTI and was discharged with indwelling Eckert catheter. Since yesterday he has an alteration of mental status, he did have some hematuria due to his attempt to remove the catheter. There is milky white material that is in the catheter and the bag. He does have a fever of 101. MD complaint: altered mental status Onset (ago): day(s) (1 day.) Timing confirmed by: family member, caregiver Severity: moderate Consistency of symptoms: getting worse Context: history of similar presentation - Related Data Home Medications Medication Instructions Recorded Confirmed Acetaminophen [Tylenol Extra 500 mg PO Q8HP PRN 10/12/17 10/12/17 Strength] Ciprofloxacin HCl [Cipro 500mg Tab] 500 mg PO BID 10/12/17 10/12/17 Lactulose [Lactulose 10gm/15ml 10 gm PO DAILYP PRN 10/12/17 10/12/17 Oral Soln] Nicotine [Nicotine Patch] 1 each TD DAILY 10/12/17 10/12/17 cephALEXin [Keflex 500mg Cap] 500 mg PO BID 10/12/17 10/12/17 risperiDONE [Risperdal 0.5mg 0.5 mg PO BID 10/12/17 10/12/17 tablet] Allergies Allergy/AdvReac Type Severity Reaction Status Date / Time No Known Allergies Allergy Verified 09/17/17 00:57 [place] History I have reviewed the patient's past medical history: Yes Medical History: Reports:: Cancer, Diabetes Mellitus Type 2 Denies:: Diabetes Mellitus Type 1, MRSA Other Surgeries: Yes: Other (hernia surgery) Amputation: No Fractures: No - Social History Smoking Status: Current every day smoker Tobacco Type: cigarettes #Yrs smoked (if former smoker): 60 Alcohol Intake: former Occupational Status: retired Housing: other Household Members: none Family Hx:: Unable to obtain ROS Obtained: Yes All systems reviewed & no additional complaints Physical Exam - General General appearance: in no apparent distress, lethargic - Head Head exam: atraumatic, normocephalic, normal inspection - Eye Eye exam: Present: normal appearance, PERRL, EOMI. Absent: scleral icterus - ENT ENT exam: Present: normal exam, normal oropharynx, mucous membranes moist, TM's normal bilaterally, normal external ear exam, other (The mouth has residual food in it, dentures with poor dental hygiene.) - Neck Neck exam: Present: normal inspection, full ROM, trachea midline. Absent: meningismus, lymphadenopathy - Chest Chest inspection: Present: normal inspection, symmetric chest wall rise. Absent : tenderness - Respiratory Respiratory exam: Present: normal lung sounds bilaterally. Absent: respiratory distress - Cardiovascular Cardiovascular exam: Present: regular rate, normal rhythm, tachycardia. Absent : JVD - Abdominal Exam Abdominal exam: Present: soft, tenderness, normal bowel sounds, other ( Suprapubic bulge dull to percussion suggest that her over distention due to a urinary retention.). Absent: distention, guarding - exam: Present: normal inspection, other (Traumatic ulcer of the urethra with purulent urine. ) - Extremities Exam Extremities exam: Present: normal inspection, full ROM, normal capillary refill. Absent: tenderness, calf tenderness - Back Exam Back exam: Present: normal inspection. Absent: tenderness - Neurological Exam Neurological exam: Present: oriented X3, CN II-XII intact, motor sensory deficit , reflexes normal - Psychiatric Psychiatric exam: Present: normal affect, normal mood - Skin Skin exam: Present: warm, dry, intact, normal color - Lymphatic Lymphatic Findings: no adenopathy
[2017-10-12 15:46] LABS: Microscopic, Urine URINE MICROSCOPIC (MICROSCOPIC)
[2017-10-12 15:48] LABS: Appearance,Urine TURBID (Clear); Bilirubin,Urine Negative (Negative); Blood, Urine 3+ (Negative); Color,Urine YELLOW (Yellow); Glucose,Urine (UA) 3+ (Negative); Ketones,Urine TRACE (Negative); Leukocyte Esterase,Urine 2+ (Negative); Protein,Urine 2+ (Negative); Specific Gravity, Urine 1.015 (1.005-1.030); Urobilinogen,Urine 0.2 EU/dl (0.2)
[2017-10-12 16:00] LABS: Bacteria,Urine 4+ /lpf; WBC,Urine TNTC #/hpf (0-3)
[2017-10-12 16:09] LABS: Basophils % 0.1 % (0.1-2.0); Eosinophils # 0.7 K/mm3 (0.0-0.4); Eosinophils % 1.9 % (0.1-12.0); Hematocrit 43.5 % (42.0-52.0); Hemoglobin 14.6 g/dL (14.1-18.0); Lymphocytes # 0.3 K/mm3 (0.7-4.5); Lymphocytes % 0.8 K/mm3 (10-50); Mean Corpuscular HGB Conc 33.6 g/dL (31.8-35.4); Mean Corpuscular Hemoglobin 31.7 pg (27.0-31.2); Mean Corpuscular Volume 94.4 fl (80-94); Mean Platelet Volume 7.3 fl (7.4-10.4); Monocytes # 0.8 K/mm3 (0.1-1.0); Monocytes % 2.2 % (1.7-9.3); Platelet Count 346 K/mm3 (142-424); Red Blood Count 4.61 M/mm3 (4.60-6.20); Red Cell Distribution Width 12.7 % (11.5-17.5); White Blood Count 35.8 K/mm3 (4.8-10.8)
[2017-10-12 16:21] LABS: Albumin Level 2.1 gm/dL (3.4-5.0); Albumin/Globulin Ratio 0.6 (1.1-1.8); Bilirubin,Total 0.7 mg/dL (0.2-1.0); Calcium 8.6 mg/dL (8.5-10.1); Globulin 3.8 gm/dl (1.3-3.2); Total Protein,Serum 5.9 gm/dL (6.4-8.2)
[2017-10-12 16:31] LABS: Lymphocytes % 1 % (10-50); Monocytes % 3 % (2-9); Neutrophils % 96 % (42-76); RBC Morphology Normal; Total Cells Counted 100
--- NOTE | 2017-10-12 19:11 | History & Physical Report ---
*Admission Date: 10/12/17 *Chief complaint: ams *History of present illness: 72-year-old male sent from [facility]. Per [facility] report patient was unresponsive. History of dementia, psychosis, and hx of prostate cancer. Upon arrival to ED via ems, pt is noted to have thick purulent type drainage in eckert cath, draining at bedside. pt has hard palpable area at lower abdomen, around bladder area. pt received 700ml of fluid bolus enroute to ed. Pt was admitted on September 17 due to acute renal retention and UTI. Was seen by Dr collazo and was discharged with indwelling Eckert catheter to [facility]. Per [facility] staff Since yesterday he has an alteration of mental status, he did have some hematuria due to his attempt to remove his own catheter. There is milky white material that is in the catheter and the bag,and a fever of 101 on arrival to ed. patient admitted for UTI and pneumonia placed on IV antibiotics to cover Pseudomonas. Patient is normally Dr. Carvalho patient prior to going to [facility] called Dr. Carvalho will accept patient under his service. [facility] did call the office this a.m. reporting thick tube feeding like drainage and Eckert catheter. Was placed on Cipro received 1 dose while at [facility]. [facility] History I have reviewed the patient's past medical history: Yes Medical History: Reports:: Cancer, Diabetes Mellitus Type 2 Denies:: Diabetes Mellitus Type 1, MRSA Other Surgeries: Yes: Other (hernia surgery) Amputation: No Fractures: No - *Social History Educational Level: Completed High School Smoking Status: Current every day smoker Tobacco Type: cigarettes #Yrs smoked (if former smoker): 60 Alcohol Intake: never Occupational Status: retired Housing: other Household Members: none - Psychiatric History Expresses thoughts of harming self/others: None Suicide Plan Description: No Plan *Family Hx:: Unable to obtain Review of Systems - Review of Systems Review of systems:: unable to obtain - Constitutional Reports fever(s) Meds Home Medications Medication Instructions Recorded Confirmed Type Acetaminophen [Tylenol Extra 500 mg PO Q8HP PRN 10/12/17 10/12/17 History Strength] Ciprofloxacin HCl [Cipro 500mg Tab] 500 mg PO BID 10/12/17 10/12/17 History Lactulose [Lactulose 10gm/15ml 10 gm PO DAILYP PRN 10/12/17 10/12/17 History Oral Soln] Nicotine [Nicotine Patch] 1 each TD DAILY 10/12/17 10/12/17 History cephALEXin [Keflex 500mg Cap] 500 mg PO BID 10/12/17 10/12/17 History risperiDONE [Risperdal 0.5mg 0.5 mg PO BID 10/12/17 10/12/17 History tablet] Allergies Allergy/AdvReac Type Severity Reaction Status Date / Time No Known Allergies Allergy Verified 09/17/17 00:57 Exam Vital signs and Labs for Last 24 Hours: Temp Pulse Resp BP Pulse Ox 98.4 F 116 H 20 117/52 95 10/12/17 17:40 10/12/17 17:40 10/12/17 17:40 10/12/17 17:40 10/12/17 18:34 Laboratory Results - last 24 hr 10/12/17 14:08: POC Glucose 407 H* 10/12/17 14:36: Lactic Acid 2.6 H 10/12/17 15:30: Urine Color Yellow, Urine Appearance Turbid, Urine pH 6.0, Ur Specific [place] 1.015, Urine Protein 2+, Urine Glucose (UA) 3+, Urine Ketones Trace, Urine Blood 3+, Urine Nitrate Negative, Urine Bilirubin Negative, Urine Urobilinogen 0.2, Ur Leukocyte Esterase 2+ A, Urine WBC Tntc, Urine Bacteria 4+ 10/12/17 16:01: WBC 35.8 H*, RBC 4.61, Hgb 14.6, Hct 43.5, MCV 94.4 H, MCH 31.7 H, MCHC 33.6, RDW 12.7, Plt Count 346, MPV 7.3 L, Neut % (Auto) 95.0 H, Lymph % (Auto) 0.8 L, [place] % (Auto) 2.2, Eos % (Auto) 1.9, Baso % (Auto) 0.1, Neut # ( Auto) 34.0 H, Lymph # (Auto) 0.3 L, [place] # (Auto) 0.8, Eos # (Auto) 0.7 H, Baso # (Auto) 0.0, Total Counted 100, Neutrophils % (Manual) 96 H, Lymphocytes % ( Manual) 1 L, Monocytes % (Manual) 3, Platelet Estimate Normal, RBC Morphology Normal 10/12/17 16:01: Sodium 129 L, Potassium 4.0, Chloride 95 L, Carbon Dioxide 22, Anion Gap 16.0 H, BUN 59 H, Creatinine 4.16 H, Estimated Creat Clear 19, Estimated GFR 14 L*, Est GFR ( Amer) 17 L*, Glucose 379 H, Calcium 8.6, Total Bilirubin 0.7, AST 12 L, ALT 29, Alkaline Phosphatase 91, Total Protein 5.9 L, Albumin 2.1 L, Globulin 3.8 H, Albumin/Globulin Ratio 0.6 L 10/12/17 16:01: Acetone Level None detected I & O for Last 24 hours: Intake & Output 10/10/17 10/11/17 10/12/17 10/13/17 11:59 11:59 11:59 11:59 Intake Total 1999 / 1999 Output Total 1800 / 1800 Balance 200 / 200 Weight 145 lb 2 oz - Constitutional mild distress, somnolent - *Routine HEENT Exam Head: Present: normocephalic Eye: Present: PERRL ENT: Present: mucous membranes moist - *Routine Neck Exam Present: supple, full ROM - *Routine Respiratory Exam Present: rhonchi, diminished air movement - *Routine Cardiovascular Exam Present: RRR - *Routine Abdominal Exam Present: soft, normoactive bowel sounds - *Routine Extremities Exam Present: full ROM - *Routine Neurological Exam Present: altered mental status - Routine Psychiatric Exam Present: unable to assess H&P: Result - Labs Labs: Short CBC 10/12/17 Range/Units 16:01 WBC 35.8 H* (4.8-10.8) K/mm3 Hgb 14.6 (14.1-18.0) g/dL Hct 43.5 (42.0-52.0) % Plt Count 346 (142-424) K/mm3 BMP 10/12/17 16:01 Sodium 129 L Potassium 4.0 Chloride 95 L Carbon Dioxide 22 BUN 59 H Creatinine 4.16 H Glucose 379 H Calcium 8.6 Liver Function 10/12/17 Range/Units 16:01 Total Bilirubin 0.7 (0.2-1.0) mg/dL AST 12 L (15-37) U/L ALT 29 (12-78) U/L Alkaline Phosphatase 91 (46-116) U/L Albumin 2.1 L (3.4-5.0) gm/dL Urine 10/12/ Range/Units 15:30 Urine Color Yellow (Yellow) Urine Appearance Turbid (Clear) Urine pH 6.0 (5.0-8.5) Ur Specific [place] 1.015 (1.005-1.030) Urine Protein 2+ (Negative) Urine Glucose (UA) 3+ (Negative) Assessment and Plan - Assessment and plan all Dx Assessment and Plan for all problems:: admit to [facility], discussed with [facility]
[2017-10-13 06:49] LABS: Basophils % 0.1 % (0.1-2.0); Eosinophils % 0.2 % (0.1-12.0); Lymphocytes # 0.6 K/mm3 (0.7-4.5); Lymphocytes % 2.6 K/mm3 (10-50); Mean Corpuscular HGB Conc 33.3 g/dL (31.8-35.4); Mean Corpuscular Hemoglobin 31.2 pg (27.0-31.2); Mean Corpuscular Volume 93.7 fl (80-94); Mean Platelet Volume 7.6 fl (7.4-10.4); Monocytes # 1.1 K/mm3 (0.1-1.0); Monocytes % 4.6 % (1.7-9.3); Neutrophils # 23.2 K/mm3 (1.8-7.8); Neutrophils % 92.7 % (37.0-80.0); Platelet Count 298 K/mm3 (142-424); Red Blood Count 3.92 M/mm3 (4.60-6.20); Red Cell Distribution Width 12.4 % (11.5-17.5)
[2017-10-13 06:59] LABS: Albumin Level 1.7 gm/dL (3.4-5.0); Albumin/Globulin Ratio 0.5 (1.1-1.8); Anion Gap 9.1 mEq/L (5-15); Bilirubin,Total 0.3 mg/dL (0.2-1.0); Calcium 8.3 mg/dL (8.5-10.1); Globulin 3.5 gm/dl (1.3-3.2); Potassium 3.1 mmoL/L (3.5-5.1); Total Protein,Serum 5.2 gm/dL (6.4-8.2)
[2017-10-13 07:05] LABS: Hemoglobin 12.3 g/dL (14.1-18.0)
--- NOTE | 2017-10-13 07:19 | Progress Note ---
Internal Medicine - PN: Subj *Date: 10/13/17 *Time: 07:16 Interval history: Patient's night was uneventful. Nursing reports patient slept most of the night. He was arousable but would quickly fall back to sleep. Daughter is at bedside this morning. Exam Vital signs and Labs for Last 24 Hours: Temp Pulse Resp BP Pulse Ox 99.2 F 106 H 20 103/48 92 L 10/13/17 04:00 10/13/17 04:00 10/13/17 04:00 10/13/17 04:00 10/13/17 04:00 Laboratory Results - last 24 hr 10/12/17 14:08: POC Glucose 407 H* 10/12/17 14:36: Lactic Acid 2.6 H 10/12/17 15:30: Urine Color Yellow, Urine Appearance Turbid, Urine pH 6.0, Ur Specific [place] 1.015, Urine Protein 2+, Urine Glucose (UA) 3+, Urine Ketones Trace, Urine Blood 3+, Urine Nitrate Negative, Urine Bilirubin Negative, Urine Urobilinogen 0.2, Ur Leukocyte Esterase 2+ A, Urine WBC Tntc, Urine Bacteria 4+ 10/12/17 16:01: WBC 35.8 H*, RBC 4.61, Hgb 14.6, Hct 43.5, MCV 94.4 H, MCH 31.7 H, MCHC 33.6, RDW 12.7, Plt Count 346, MPV 7.3 L, Neut % (Auto) 95.0 H, Lymph % (Auto) 0.8 L, [place] % (Auto) 2.2, Eos % (Auto) 1.9, Baso % (Auto) 0.1, Neut # ( Auto) 34.0 H, Lymph # (Auto) 0.3 L, [place] # (Auto) 0.8, Eos # (Auto) 0.7 H, Baso # (Auto) 0.0, Total Counted 100, Neutrophils % (Manual) 96 H, Lymphocytes % ( Manual) 1 L, Monocytes % (Manual) 3, Platelet Estimate Normal, RBC Morphology Normal 10/12/17 16:01: Sodium 129 L, Potassium 4.0, Chloride 95 L, Carbon Dioxide 22, Anion Gap 16.0 H, BUN 59 H, Creatinine 4.16 H, Estimated Creat Clear 19, Estimated GFR 14 L*, Est GFR ( Amer) 17 L*, Glucose 379 H, Calcium 8.6, Total Bilirubin 0.7, AST 12 L, ALT 29, Alkaline Phosphatase 91, Total Protein 5.9 L, Albumin 2.1 L, Globulin 3.8 H, Albumin/Globulin Ratio 0.6 L 10/12/17 16:01: Acetone Level None detected 10/12/17 18:43: Lactic Acid Fup @ 4Hr 1.4 10/12/17 20:48: POC Glucose 290 H 10/13/17 06:21: POC Glucose 180 H 10/13/17 06:37: WBC 25.0 H* D, RBC 3.92 L, Hgb 12.3 L D, Hct 37.0 L, MCV 93.7, MCH 31.2, MCHC 33.3, RDW 12.4, Plt Count 298, MPV 7.6, Neut % (Auto) 92.7 H, Lymph % (Auto) 2.6 L, [place] % (Auto) 4.6, Eos % (Auto) 0.2, Baso % (Auto) 0.1, Neut # (Auto) 23.2 H, Lymph # (Auto) 0.6 L, [place] # (Auto) 1.1 H, Eos # (Auto) 0.0, Baso # (Auto) 0.0 10/13/17 06:37: Sodium 139, Potassium 3.1 L D, Chloride 105, Carbon Dioxide 28 D, Anion Gap 9.1, BUN 40 H D, Creatinine 1.73 H D, Estimated Creat Clear 35, Estimated GFR 39 L, Est GFR ( Amer) 47 L D, Glucose 184 H D, Calcium 8.3 L, Magnesium 2.1, Total Bilirubin 0.3, AST 10 L, ALT 22, Alkaline Phosphatase 74 , Total Protein 5.2 L, Albumin 1.7 L D, Globulin 3.5 H, Albumin/Globulin Ratio 0.5 L I & O for Last 24 hours: Intake & Output 10/10/17 10/11/17 10/12/17 10/13/17 11:59 11:59 11:59 11:59 Intake Total 2100 / 2100 Output Total 3200 / 3200 Balance -1100 / -1100 Weight 145 lb 2 oz Narrative: Patient will start her within the bed when his name is called with tactile stimulus and he does open his eyes but quickly shuts them again and goes back to sleep. Lung exam reveals rhonchi on the right anteriorly and laterally. Heart has a regular rate and rhythm. Abdomen is soft but patient voluntarily guards with palpation of the right abdomen. Genitourinary exam reveals Olivier catheter in place although there has been a tear in the urethral meatus form where the patient reportedly pulled on the catheter at the facility where he is residing Assessment and Plan (1) Systemic inflammatory response syndrome (SIRS) Current visit: Yes Status: Acute Category: Medical Code(s): R65.10 - Systemic inflammatory response syndrome (SIRS) of non-infectious origin without acute organ dysfunction (2) Right lower lobe pneumonia Current visit: Yes Status: Acute Category: Medical Code(s): J18.1 - Lobar pneumonia, unspecified organism (3) Acute kidney injury Current visit: Yes Status: Acute Category: Medical Code(s): N17.9 - Acute kidney failure, unspecified (4) Bladder neck obstruction Current visit: Yes Status: Acute Category: Medical Code(s): N32.0 - Bladder-neck obstruction (5) UTI (urinary tract infection) Current visit: Yes Status: Acute Category: Medical Code(s): N39.0 - Urinary tract infection, site not specified (6) Prostate cancer Current visit: No Status: Chronic Category: Medical Code(s): C61 - Malignant neoplasm of prostate - Assessment and plan all Dx Assessment and Plan for all problems:: Patient is stable at this time. Renal function has improved likely after adjustment of the Olivier catheter to allow for better drainage of urine from the bladder is on presentation the catheter was within the prostatic urethra. Continue broad-spectrum antibiotic coverage. Labs would indicate some improvement in patient's condition. Patient is a DNR. Patient's daughter was at bedside this morning and she is aware of the level of the illness of her father
--- NOTE | 2017-10-13 07:51 | Pharmacy Consult Notes ---
[facility] Pharm[facility] VTE Monitoring - Patient Demographics Admission date: 10/13/17 Report Date: 10/13/17 Time: 07:51 Allergies/Adverse Reactions: Patient Allergies No Known Allergies Allergy (Verified 09/17/17 00:57) Height: 1.65 m Weight: 65.828 kg Patient Problems: Current Active Problems Right lower lobe pneumonia (Acute) UTI (urinary tract infection) (Acute) Cholelithiasis (Acute) Systemic inflammatory response syndrome (SIRS) (Acute) Bladder neck obstruction (Acute) Acute kidney injury (Acute) - VTE Risk Labs: VTE Related Lab Results Hgb 12.3 g/dL (14.1-18.0) L D 10/13/17 06:37 Hct 37.0 % (42.0-52.0) L 10/13/17 06:37 Plt Count 298 K/mm3 (142-424) 10/13/17 06:37 BUN 40 mg/dL (7-18) H D 10/13/17 06:37 Creatinine 1.73 mg/dL (0.70-1.30) H D 10/13/17 06:37 Estimated Creat Clear 35 mL/min (0-300) 10/13/17 06:37 Was VTE Risk Assessment Performed: Yes VTE Score: 5 VTE Risk Level: Low Risk Clinical Trial Participant: No - Prophylaxis VTE Prophylaxis Ordered?: Yes Types of VTE Prophylaxis: TEDS Knee High Location of Applied Device: Bilateral Lower Extremeties
[2017-10-13 10:06] LABS: Lymphocytes % 2 % (10-50); Monocytes % 1 % (2-9); Neutrophils % 97 % (42-76); Total Cells Counted 100
[2017-10-13 10:08] LABS: RBC Morphology Normal
--- NOTE | 2017-10-13 18:21 | Consult Report ---
*Admission Date: 10/13/17 *Chief complaint: [place] tract infection state enlargement questionable prostate cancer *History of present illness: 72-year-old male sent from [facility]. Per long term report patient was unresponsive. History of dementia, psychosis, and hx of prostate cancer. Upon arrival to ED via ems, pt is noted to have thick purulent type drainage in eckert cath, draining at bedside. pt has hard palpable area at lower abdomen, around bladder area. pt received 700ml of fluid bolus enroute to ed. Pt was admitted on September 17 due to acute renal retention and UTI. Was seen by Dr ojeda and was discharged with indwelling Eckert catheter to [facility]. Per long term staff Since yesterday he has an alteration of mental status, he did have some hematuria due to his attempt to remove his own catheter. There is milky white material that is in the catheter and the bag,and a fever of 101 on arrival to ed. patient admitted for UTI and pneumonia placed on IV antibiotics to cover Pseudomonas. Patient is normally Dr. Carvalho patient prior to going to [facility] called Dr. Carvalho will accept patient under his service. [facility] did call the office this a.m. reporting thick tube feeding like drainage and Eckert catheter. Was placed on Cipro received 1 dose while at [facility]. I have been asked to see this gentleman as an inpatient consult. He is previously seen by Dr. Ojeda. His initial visit with him was in April 2016 for a beta PSA of 20. Yearly and had previous PSAs normal in 2010 at 2.8 and 1.2 in 2009. Currently around that time he was having issues with urination. He was placed on finasteride and Flomax. He actually taken that previously but then had stopped medication for over a year. At that visit he was restarted on finasteride and Flomax. A repeat PSA was obtained on that visit and returned 16. They elected at that time to follow him due to other issues. It is unclear whether he had further visits urologically at that time. The intention at that point however was to follow-up 6 months with repeat PSA for watchful waiting. The decision was made not to proceed by with biopsy at that time. Apparently approximately 3 weeks ago he was admitted to the long term due to inability to care for himself at home. Somewhere along the way he had a Eckert catheter placed. He presented here on the . He was found to have a urinary infection as well as a distended bladder. The Eckert catheter balloon was in his prosthetic urethra. After repositioning he is draining considerable amount of clearing urine. Also found to have a significant urinary infection. White count was 25,000. Urine culture is pending. Son is at bedside in additional history obtained from him. Is also been diagnosed with a right lower lobe pneumonia. Impression prostate enlargement of undetermined etiology. At this point I suggest we continue with Eckert catheter drainage. We will await urine culture results and treat him accordingly. If his mentation cleared we can consider further evaluation. His best option may be continuous catheter versus suprapubic catheter placement. Once infection is cleared it would be reasonable to obtain a PSA although this may not be very reliable considering his instrumentation, urinary infection and recent prostate trauma. He will need a follow-up appointment with me in 2 weeks. [facility] History Medical History: Reports:: Cancer, Diabetes Mellitus Type 2 Denies:: Diabetes Mellitus Type 1, MRSA Other Surgeries: Yes: Other (hernia surgery) Amputation: No Fractures: No - *Social History Educational Level: Completed High School Smoking Status: Current every day smoker Tobacco Type: cigarettes #Yrs smoked (if former smoker): 60 Alcohol Intake: never Occupational Status: retired Housing: other Household Members: none - Psychiatric History Expresses thoughts of harming self/others: None Suicide Plan Description: No Plan *Family Hx:: Unable to obtain Meds Home Medications Medication Instructions Recorded Confirmed Type Acetaminophen [Tylenol Extra 1,000 mg PO Q8HP PRN 10/12/17 10/13/17 History Strength] Ciprofloxacin HCl [Cipro 500mg Tab] 500 mg PO BID 10/12/17 10/12/17 History Lactulose [Lactulose 10gm/15ml 20 gm PO DAILYP PRN 10/12/17 10/13/17 History Oral Soln] Nicotine [Nicotine Patch] 14 mg TD DAILY 10/12/17 10/13/17 History cephALEXin [Keflex 500mg Cap] 500 mg PO BID 10/12/17 10/12/17 History risperiDONE [Risperdal 0.5mg 0.5 mg PO TID 10/12/17 10/13/17 History tablet] Allergies Allergy/AdvReac Type Severity Reaction Status Date / Time No Known Allergies Allergy Verified 09/17/17 00:57 Exam Vital signs and Labs for Last 24 Hours: Temp Pulse Resp BP Pulse Ox 98.4 F 116 H 22 149/62 94 L 10/13/17 15:44 10/13/17 15:44 10/13/17 15:44 10/13/17 15:44 10/13/17 15:44 Laboratory Results - last 24 hr 10/12/17 15:30: Urine Color Yellow, Urine Appearance Turbid, Urine pH 6.0, Ur Specific [place] 1.015, Urine Protein 2+, Urine Glucose (UA) 3+, Urine Ketones Trace, Urine Blood 3+, Urine Nitrate Negative, Urine Bilirubin Negative, Urine Urobilinogen 0.2, Ur Leukocyte Esterase 2+ A, Urine WBC Tntc, Urine Bacteria 4+ 10/12/17 18:43: Lactic Acid Fup @ 4Hr 1.4 10/12/17 20:48: POC Glucose 290 H 10/13/17 06:21: POC Glucose 180 H 10/13/17 06:37: WBC 25.0 H* D, RBC 3.92 L, Hgb 12.3 L D, Hct 37.0 L, MCV 93.7, MCH 31.2, MCHC 33.3, RDW 12.4, Plt Count 298, MPV 7.6, Neut % (Auto) 92.7 H, Lymph % (Auto) 2.6 L, [place] % (Auto) 4.6, Eos % (Auto) 0.2, Baso % (Auto) 0.1, Neut # (Auto) 23.2 H, Lymph # (Auto) 0.6 L, [place] # (Auto) 1.1 H, Eos # (Auto) 0.0, Baso # (Auto) 0.0, Total Counted 100, Neutrophils % (Manual) 97 H, Lymphocytes % (Manual) 2 L, Monocytes % (Manual) 1 L, Platelet Estimate Normal, RBC Morphology Normal 10/13/17 06:37: Sodium 139, Potassium 3.1 L D, Chloride 105, Carbon Dioxide 28 D, Anion Gap 9.1, BUN 40 H D, Creatinine 1.73 H D, Estimated Creat Clear 35, Estimated GFR 39 L, Est GFR ( Amer) 47 L D, Glucose 184 H D, Calcium 8.3 L, Magnesium 2.1, Total Bilirubin 0.3, AST 10 L, ALT 22, Alkaline Phosphatase 74 , Total Protein 5.2 L, Albumin 1.7 L D, Globulin 3.5 H, Albumin/Globulin Ratio 0.5 L 10/13/17 12:20: POC Glucose 241 H 10/13/17 16:55: POC Glucose 245 H I & O for Last 24 hours: Intake & Output 10/10/17 10/11/17 10/12/17 10/13/17 23:59 23:59 23:59 23:59 Intake Total 2100 / 2100 240 / 240 Output Total 1800 / 1800 2700 / 2700 Balance 300 / 300 -2460 / -2460 Weight 65.828 kg 65.828 kg Microbiology Reports for the Last 24 Hours: Microbiology 10/12/17 14:36 Blood Blood Culture - Preliminary Pseudomonas aeruginosa 10/12/17 14:36 Blood Blood Culture - Preliminary Pseudomonas aeruginosa 10/12/17 15:43 Urine,Catheterized Urine Culture - Preliminary Gram Negative Rods Gram Negative Rods#2 Gram Negative Rods#3 Gram Negative Rods#4 Results - Labs 10/13/17 06:37 10/13/17 06:37 Laboratory Results - last 24 hr 10/12/17 15:30: Urine Color Yellow, Urine Appearance Turbid, Urine pH 6.0, Ur Specific [place] 1.015, Urine Protein 2+, Urine Glucose (UA) 3+, Urine Ketones Trace, Urine Blood 3+, Urine Nitrate Negative, Urine Bilirubin Negative, Urine Urobilinogen 0.2, Ur Leukocyte Esterase 2+ A, Urine WBC Tntc, Urine Bacteria 4+ 10/12/17 18:43: Lactic Acid Fup @ 4Hr 1.4 10/12/17 20:48: POC Glucose 290 H 10/13/17 06:21: POC Glucose 180 H 10/13/17 06:37: WBC 25.0 H* D, RBC 3.92 L, Hgb 12.3 L D, Hct 37.0 L, MCV 93.7, MCH 31.2, MCHC 33.3, RDW 12.4, Plt Count 298, MPV 7.6, Neut % (Auto) 92.7 H, Lymph % (Auto) 2.6 L, [place] % (Auto) 4.6, Eos % (Auto) 0.2, Baso % (Auto) 0.1, Neut # (Auto) 23.2 H, Lymph # (Auto) 0.6 L, [place] # (Auto) 1.1 H, Eos # (Auto) 0.0, Baso # (Auto) 0.0, Total Counted 100, Neutrophils % (Manual) 97 H, Lymphocytes % (Manual) 2 L, Monocytes % (Manual) 1 L, Platelet Estimate Normal, RBC Morphology Normal 10/13/17 06:37: Sodium 139, Potassium 3.1 L D, Chloride 105, Carbon Dioxide 28 D, Anion Gap 9.1, BUN 40 H D, Creatinine 1.73 H D, Estimated Creat Clear 35, Estimated GFR 39 L, Est GFR ( Amer) 47 L D, Glucose 184 H D, Calcium 8.3 L, Magnesium 2.1, Total Bilirubin 0.3, AST 10 L, ALT 22, Alkaline Phosphatase 74 , Total Protein 5.2 L, Albumin 1.7 L D, Globulin 3.5 H, Albumin/Globulin Ratio 0.5 L 10/13/17 12:20: POC Glucose 241 H 10/13/17 16:55: POC Glucose 245 H Assessment and Plan (1) Systemic inflammatory response syndrome (SIRS) Current visit: Yes Status: Acute Category: Medical Code(s): R65.10 - Systemic inflammatory response syndrome (SIRS) of non-infectious origin without acute organ dysfunction (2) Right lower lobe pneumonia Current visit: Yes Status: Acute Category: Medical Code(s): J18.1 - Lobar pneumonia, unspecified organism (3) Acute kidney injury Current visit: Yes Status: Acute Category: Medical Code(s): N17.9 - Acute kidney failure, unspecified (4) Bladder neck obstruction Current visit: Yes Status: Acute Category: Medical Code(s): N32.0 - Bladder-neck obstruction (5) UTI (urinary tract infection) Current visit: Yes Status: Acute Category: Medical Code(s): N39.0 - Urinary tract infection, site not specified (6) Prostate cancer Current visit: No Status: Chronic Category: Medical Code(s): C61 - Malignant neoplasm of prostate
--- NOTE | 2017-10-14 07:03 | Progress Note ---
Internal Medicine - PN: Subj *Date: 10/14/17 *Time: 06:59 Interval history: Patient became more awake as his day progressed yesterday and was actually able to tolerate a soft diet. Blood cultures have turned positive for Pseudomonas and urine is growing multiple species of E. coli in addition to an as yet unidentified bacteria. He did become combative for a brief period of time overnight with staff and refused to be turned. He was given Haldol for his agitation and responded nicely. Nursing staff reports this morning he has been more agreeable to turning during his bath. Patient himself denies pain. Exam Vital signs and Labs for Last 24 Hours: Temp Pulse Resp BP Pulse Ox 98.7 F 112 H 24 144/62 93 L 10/14/17 04:00 10/14/17 04:00 10/14/17 04:00 10/14/17 04:00 10/14/17 04:00 Laboratory Results - last 24 hr 10/12/17 15:30: Urine Color Yellow, Urine Appearance Turbid, Urine pH 6.0, Ur Specific [place] 1.015, Urine Protein 2+, Urine Glucose (UA) 3+, Urine Ketones Trace, Urine Blood 3+, Urine Nitrate Negative, Urine Bilirubin Negative, Urine Urobilinogen 0.2, Ur Leukocyte Esterase 2+ A, Urine WBC Tntc, Urine Bacteria 4+ 10/13/17 06:37: WBC 25.0 H* D, RBC 3.92 L, Hgb 12.3 L D, Hct 37.0 L, MCV 93.7, MCH 31.2, MCHC 33.3, RDW 12.4, Plt Count 298, MPV 7.6, Neut % (Auto) 92.7 H, Lymph % (Auto) 2.6 L, [place] % (Auto) 4.6, Eos % (Auto) 0.2, Baso % (Auto) 0.1, Neut # (Auto) 23.2 H, Lymph # (Auto) 0.6 L, [place] # (Auto) 1.1 H, Eos # (Auto) 0.0, Baso # (Auto) 0.0, Total Counted 100, Neutrophils % (Manual) 97 H, Lymphocytes % (Manual) 2 L, Monocytes % (Manual) 1 L, Platelet Estimate Normal, RBC Morphology Normal 10/13/17 06:37: Sodium 139, Potassium 3.1 L D, Chloride 105, Carbon Dioxide 28 D, Anion Gap 9.1, BUN 40 H D, Creatinine 1.73 H D, Estimated Creat Clear 35, Estimated GFR 39 L, Est GFR ( Amer) 47 L D, Glucose 184 H D, Calcium 8.3 L, Magnesium 2.1, Total Bilirubin 0.3, AST 10 L, ALT 22, Alkaline Phosphatase 74 , Total Protein 5.2 L, Albumin 1.7 L D, Globulin 3.5 H, Albumin/Globulin Ratio 0.5 L 10/13/17 12:20: POC Glucose 241 H 10/13/17 16:55: POC Glucose 245 H 10/13/17 19:41: POC Glucose 293 H 10/14/17 06:06: POC Glucose 250 H I & O for Last 24 hours: Intake & Output 10/11/17 10/12/17 10/13/17 10/14/17 11:59 11:59 11:59 11:59 Intake Total 2100 / 2100 240 / 240 Output Total 3200 / 3200 3500 / 3500 Balance -1100 / -1100 -3260 / -3260 Weight 145 lb 2 oz Microbiology Reports for the Last 24 Hours: Microbiology 10/12/17 15:43 Urine,Catheterized Urine Culture - Preliminary Escherichia coli Enterobact cloac comp Enterobact cloac comp#2 Gram Negative Rods#4 10/12/17 14:36 Blood Blood Culture - Preliminary Pseudomonas aeruginosa 10/12/17 14:36 Blood Blood Culture - Preliminary Pseudomonas aeruginosa Narrative: Vision is ill-appearing and tired. He has trouble staying awake when being spoken to. Respirations are shallow. Lungs have rhonchi bilaterally but louder on the right. Heart has a regular rate and rhythm. Abdomen is soft and bowel sounds are present. Assessment and Plan (1) Systemic inflammatory response syndrome (SIRS) Current visit: Yes Status: Acute Category: Medical Code(s): R65.10 - Systemic inflammatory response syndrome (SIRS) of non-infectious origin without acute organ dysfunction (2) Right lower lobe pneumonia Current visit: Yes Status: Acute Category: Medical Code(s): J18.1 - Lobar pneumonia, unspecified organism (3) Acute kidney injury Current visit: Yes Status: Acute Category: Medical Code(s): N17.9 - Acute kidney failure, unspecified (4) Bladder neck obstruction Current visit: Yes Status: Acute Category: Medical Code(s): N32.0 - Bladder-neck obstruction (5) UTI (urinary tract infection) Current visit: Yes Status: Acute Category: Medical Code(s): N39.0 - Urinary tract infection, site not specified (6) Prostate cancer Current visit: No Status: Chronic Category: Medical Code(s): C61 - Malignant neoplasm of prostate - Assessment and plan all Dx Assessment and Plan for all problems:: Patient is on broad-spectrum antibiotic coverage for his Pseudomonas. Await official sensitivities. Patient's condition is guarded. Will order a PT consult today for strength assessment although I expect the patient to be quite weak. It would benefit him to move a little including getting out of bed to chair.
[2017-10-14 07:07] LABS: Eosinophils # 0.1 K/mm3 (0.0-0.4); Eosinophils % 0.6 % (0.1-12.0); Hematocrit 37.7 % (42.0-52.0); Hemoglobin 12.5 g/dL (14.1-18.0); Lymphocytes # 0.7 K/mm3 (0.7-4.5); Lymphocytes % 3.7 K/mm3 (10-50); Mean Corpuscular HGB Conc 33.3 g/dL (31.8-35.4); Mean Corpuscular Hemoglobin 31.3 pg (27.0-31.2); Mean Corpuscular Volume 94.2 fl (80-94); Mean Platelet Volume 7.7 fl (7.4-10.4); Monocytes % 5.6 % (1.7-9.3); Neutrophils # 16.6 K/mm3 (1.8-7.8); Neutrophils % 90.1 % (37.0-80.0); Platelet Count 338 K/mm3 (142-424); Red Cell Distribution Width 12.1 % (11.5-17.5); White Blood Count 18.4 K/mm3 (4.8-10.8)
[2017-10-14 07:14] LABS: Anion Gap 6.3 mEq/L (5-15); Calcium 8.7 mg/dL (8.5-10.1); Potassium 3.3 mmoL/L (3.5-5.1)
[2017-10-14 12:08] LABS: Lymphocytes % 4 % (10-50); Monocytes % 3 % (2-9); Neutrophils % 93 % (42-76); RBC Morphology Normal; Total Cells Counted 100
--- NOTE | 2017-10-15 06:57 | Progress Note ---
Internal Medicine - PN: Subj *Date: 10/15/17 *Time: 06:54 Interval history: Patient has no complaints this morning. Nursing staff reports that he was pleasant overnight. Patient denies pain or shortness of breath. Exam Vital signs and Labs for Last 24 Hours: Temp Pulse Resp BP Pulse Ox 98.0 F 103 H 22 155/81 92 L 10/15/17 04:00 10/15/17 04:00 10/15/17 04:00 10/15/17 04:00 10/15/17 04:00 Laboratory Results - last 24 hr 10/14/17 06:34: WBC 18.4 H D, RBC 4.00 L, Hgb 12.5 L, Hct 37.7 L, MCV 94.2 H, MCH 31.3 H, MCHC 33.3, RDW 12.1, Plt Count 338, MPV 7.7, Neut % (Auto) 90.1 H, Lymph % (Auto) 3.7 L, [place] % (Auto) 5.6, Eos % (Auto) 0.6, Baso % (Auto) 0.0 L, Neut # (Auto) 16.6 H, Lymph # (Auto) 0.7, [place] # (Auto) 1.0, Eos # (Auto) 0.1, Baso # (Auto) 0.0, Total Counted 100, Neutrophils % (Manual) 93 H, Lymphocytes % (Manual) 4 L, Monocytes % (Manual) 3, Platelet Estimate Normal, RBC Morphology Normal 10/14/17 06:34: Sodium 137, Potassium 3.3 L, Chloride 104, Carbon Dioxide 30, Anion Gap 6.3, BUN 21 H D, Creatinine 0.89 D, Estimated Creat Clear 60, Estimated GFR 84, Est GFR ( Amer) 101 D, Glucose 278 H D, Calcium 8.7 10/14/17 11:36: POC Glucose 299 H 10/14/17 16:25: POC Glucose 239 H 10/14/17 20:30: POC Glucose 247 H 10/15/17 06:10: POC Glucose 253 H I & O for Last 24 hours: Intake & Output 10/12/17 10/13/17 10/14/17 10/15/17 11:59 11:59 11:59 11:59 Intake Total 2100 / 2100 240 / 240 3603 / 3603 Output Total 3200 / 3200 4500 / 4500 5000 / 5000 Balance -1100 / -1100 -4260 / -4260 -1397 / -1397 Weight 145 lb 2 oz 145 lb 2.014 oz Microbiology Reports for the Last 24 Hours: Microbiology 10/12/17 14:36 Blood Blood Culture - Preliminary Pseudomonas aeruginosa 10/12/17 14:36 Blood Blood Culture - Preliminary Pseudomonas aeruginosa 10/12/17 15:43 Urine,Catheterized Urine Culture - Final Escherichia coli Enterobact cloac comp Enterobact cloac comp#2 Pseudomonas aeruginosa Narrative: Patient is more awake and interactive this morning. He is oriented to person. Lungs have clear sounds on the right all diminished but there are no more rhonchi at this time. Heart has a regular rate and rhythm. Abdomen is soft and nontender. Assessment and Plan (1) Systemic inflammatory response syndrome (SIRS) Current visit: Yes Status: Acute Category: Medical Code(s): R65.10 - Systemic inflammatory response syndrome (SIRS) of non-infectious origin without acute organ dysfunction (2) Right lower lobe pneumonia Current visit: Yes Status: Acute Category: Medical Code(s): J18.1 - Lobar pneumonia, unspecified organism (3) Acute kidney injury Current visit: Yes Status: Acute Category: Medical Code(s): N17.9 - Acute kidney failure, unspecified (4) Bladder neck obstruction Current visit: Yes Status: Acute Category: Medical Code(s): N32.0 - Bladder-neck obstruction (5) UTI (urinary tract infection) Current visit: Yes Status: Acute Category: Medical Code(s): N39.0 - Urinary tract infection, site not specified (6) Prostate cancer Current visit: No Status: Chronic Category: Medical Code(s): C61 - Malignant neoplasm of prostate (7) Pseudomonas aeruginosa infection Current visit: Yes Status: Acute Category: Medical Code(s): A49.8 - Other bacterial infections of unspecified site (8) E. coli infection Current visit: Yes Status: Acute Category: Medical Code(s): A49.8 - Other bacterial infections of unspecified site (9) Infection due to Enterobacter cloacae Current visit: Yes Status: Acute Category: Medical Code(s): A49.8 - Other bacterial infections of unspecified site (10) Diabetes mellitus Current visit: Yes Status: Acute Category: Medical Code(s): E11.9 - Type 2 diabetes mellitus without complications - Assessment and plan all Dx Assessment and Plan for all problems:: Continue broad-spectrum antibiotic coverage. Patient is responding to treatment. Overall though I would say his prognosis remains poor due to his underlying prostate cancer and dementia. If he continues to respond to treatment anticipate discharge back to [facility] tomorrow to finish a two-week course of intravenous antibiotics with cefepime and Levaquin
[2017-10-15 07:24] LABS: Basophils % 0.1 % (0.1-2.0); Eosinophils # 0.1 K/mm3 (0.0-0.4); Eosinophils % 0.5 % (0.1-12.0); Hematocrit 42.5 % (42.0-52.0); Hemoglobin 14.1 g/dL (14.1-18.0); Lymphocytes # 0.8 K/mm3 (0.7-4.5); Lymphocytes % 5.1 K/mm3 (10-50); Mean Corpuscular HGB Conc 33.2 g/dL (31.8-35.4); Mean Corpuscular Hemoglobin 31.4 pg (27.0-31.2); Mean Corpuscular Volume 94.5 fl (80-94); Mean Platelet Volume 8.2 fl (7.4-10.4); Monocytes # 1.2 K/mm3 (0.1-1.0); Monocytes % 7.3 % (1.7-9.3); Neutrophils # 14.3 K/mm3 (1.8-7.8); Neutrophils % 87.1 % (37.0-80.0); Platelet Count 391 K/mm3 (142-424); Red Cell Distribution Width 12.2 % (11.5-17.5); White Blood Count 16.4 K/mm3 (4.8-10.8)
[2017-10-15 07:30] LABS: Calcium 8.2 mg/dL (8.5-10.1)
[2017-10-15 09:19] LABS: Lymphocytes % 5 % (10-50); Monocytes % 8 % (2-9); Neutrophils % 86 % (42-76); Total Cells Counted 100
[2017-10-15 09:20] LABS: RBC Morphology Normal
--- NOTE | 2017-10-16 06:14 | Discharge Summary ---
General - General Admission date:: 10/12/17 Discharge date: 10/16/17 HPI HPI: 72-year-old male sent from [facility]. Per [facility] report patient was unresponsive. History of dementia, psychosis, and hx of prostate cancer. Upon arrival to ED via ems, pt is noted to have thick purulent type drainage in eckert cath, draining at bedside. pt has hard palpable area at lower abdomen, around bladder area. pt received 700ml of fluid bolus enroute to ed. Pt was admitted on September 17 due to acute renal retention and UTI. Was seen by Dr collazo and was discharged with indwelling Eckert catheter to [facility]. Per [facility] staff Since yesterday he has an alteration of mental status, he did have some hematuria due to his attempt to remove his own catheter. There is milky white material that is in the catheter and the bag,and a fever of 101 on arrival to ed. patient admitted for UTI and pneumonia placed on IV antibiotics to cover Pseudomonas. Patient is normally Dr. Carvalho patient prior to going to [facility] called Dr. Carvalho will accept patient under his service. [facility] did call the office this a.m. reporting thick tube feeding like drainage and Eckert catheter. Was placed on Cipro received 1 dose while at [facility]. Hospital Course Hospital Course: Patient was admitted and placed on broad-spectrum antibiotics of Invanz, Levaquin, Flagyl. Condition was guarded upon admission. Patient's family agreed to make the patient a DNR. Within 24 hours cultures of the blood were positive for Pseudomonas and urine cultures followed soon after has been positive for Pseudomonas, 2 Enterobacter species, and E. coli. Due to the presence of Pseudomonas antibiotics were changed, Flagyl was discontinued as well as Invanz and cefepime was added to his regimen. The regimen of cefepime and Levaquin covered all bacterial species involved with infections. Patient's fevers resolved after 24 hours. He became more awake although agitated and Haldol was used to treat agitation. After 48 hours patient had become calmer and was more interactive with staff. PT evaluated the patient. Patient remained afebrile the rest of hospitalization. White count was 35,000 on admission and gradually trended down. Patient developed mild hypokalemia which was treated with oral potassium supplementation. PICC line was placed as patient will need 2 weeks worth of antibiotics. On October 16 patient was discharged back to [facility]. He will need to complete a two- week course of antibiotics ending on October 27. He will need a CBC and BMP on October 19 as well as October 26. Patient's blood sugars were elevated on admission and initially this was thought to be due to degree of illness. However as illness improved blood sugars remain elevated. He will be started on a low dose glimepiride to treat his diabetes. Due to agitation patient experienced will try to treat his diabetes with oral hypoglycemics to avoid potential confrontational interactions if patient is given insulin While hospitalized patient was evaluated by the urologic service due to his history of prostate cancer in the presence of his indwelling catheter. Dr. Roberts recommended treating the urinary tract infection and then having the patient follow up with him in 2 weeks. Mental status: Oriented to person Prognosis: Fair Rehab potential: Fair Objective Vital signs: Temp Pulse Resp BP Pulse Ox 97.5 F L 87 18 122/69 95 10/16/17 04:00 10/16/17 04:00 10/16/17 04:00 10/16/17 04:00 10/16/17 04:00 Results Labs on day of discharge: Labs from last 24 hours 10/15/17 10/15/17 10/15/17 20:29 16:57 10:28 WBC RBC Hgb Hct MCV MCH MCHC RDW Plt Count MPV Neut % (Auto) Lymph % (Auto) [place] % (Auto) Eos % (Auto) Baso % (Auto) Neut # (Auto) Lymph # (Auto) [place] # (Auto) Eos # (Auto) Baso # (Auto) Total Counted Neutrophils % (Manual) Band Neutrophils % Lymphocytes % (Manual) Monocytes % (Manual) Platelet Estimate RBC Morphology Sodium Potassium Chloride Carbon Dioxide Anion Gap BUN Creatinine Estimated Creat Clear Estimated GFR Est GFR ( Amer) Glucose POC Glucose 257 H 225 H 234 H Calcium 10/15/17 10/15/17 10/15/17 06:45 06:45 06:10 WBC 16.4 H RBC 4.50 L Hgb 14.1 Hct 42.5 MCV 94.5 H MCH 31.4 H MCHC 33.2 RDW 12.2 Plt Count 391 MPV 8.2 Neut % (Auto) 87.1 H Lymph % (Auto) 5.1 L [place] % (Auto) 7.3 Eos % (Auto) 0.5 Baso % (Auto) 0.1 Neut # (Auto) 14.3 H Lymph # (Auto) 0.8 [place] # (Auto) 1.2 H Eos # (Auto) 0.1 Baso # (Auto) 0.0 Total Counted 100 Neutrophils % (Manual) 86 H Band Neutrophils % 1.0 Lymphocytes % (Manual) 5 L Monocytes % (Manual) 8 Platelet Estimate Normal RBC Morphology Normal Sodium 135 L Potassium 3.0 L Chloride 99 Carbon Dioxide 31 Anion Gap 8.0 BUN 11 D Creatinine 0.69 L D Estimated Creat Clear 60 Estimated GFR 112 Est GFR ( Amer) 136 D Glucose 270 H POC Glucose 253 H Calcium 8.2 L Preliminary micro results at discharge 10/12/17 14:36 Blood Culture - Preliminary Blood Pseudomonas aeruginosa 10/12/17 14:36 Blood Culture - Preliminary Blood Pseudomonas aeruginosa DS: Diagnosis - Discharge Diagnosis (1) Systemic inflammatory response syndrome (SIRS) Status: Acute (2) Right lower lobe pneumonia Status: Acute (3) Acute kidney injury Status: Acute (4) Bladder neck obstruction Status: Acute (5) UTI (urinary tract infection) Status: Acute (6) Prostate cancer Status: Chronic (7) Pseudomonas aeruginosa infection Status: Acute (8) E. coli infection Status: Acute (9) Infection due to Enterobacter cloacae Status: Acute (10) Diabetes mellitus Status: Acute Discharge Plan - Patient Discharge Instructions ACTIVITY: Continue current activity DIET: continue same diet - Follow up Plan Follow up with: Andrés Roberts MD [Staff Physician] - 2 weeks Disposition: [facility] Home Medications: Home Medications Medication Instructions Recorded Confirmed Type Acetaminophen [Tylenol Extra 1,000 mg PO Q8HP PRN 10/12/17 10/13/17 History Strength] Ciprofloxacin HCl [Cipro 500mg Tab] 500 mg PO BID 10/12/17 10/12/17 History Lactulose [Lactulose 10gm/15ml 20 gm PO DAILYP PRN 10/12/17 10/13/17 History Oral Soln] Nicotine [Nicotine Patch] 14 mg TD DAILY 10/12/17 10/13/17 History cephALEXin [Keflex 500mg Cap] 500 mg PO BID 10/12/17 10/12/17 History risperiDONE [Risperdal 0.5mg 0.5 mg PO TID 10/12/17 10/13/17 History tablet] Prescriptions/Medication Reconciliation: New Cefepime HCl [Maxipime 2gm Vial] 2 gm IV 1000,2200 vial Levofloxacin/D5w 750 mg/150 ml [Levofloxacin 750mg/150mL Premix IVPB] 750 mg IV Q24H piggyback Glimepiride 1 mg PO DAILY #30 tablet Continue Nicotine [Nicotine Patch] 14 mg TD DAILY Lactulose [Lactulose 10gm/15ml Oral Soln] 20 gm PO DAILYP PRN PRN Reason: Constipation Acetaminophen [Tylenol Extra Strength] 1,000 mg PO Q8HP PRN PRN Reason: pain Changed risperiDONE [Risperdal 0.5mg tablet] 0.5 mg PO BID #0 Discontinued cephALEXin [Keflex 500mg Cap] 500 mg PO BID Ciprofloxacin HCl [Cipro 500mg Tab] 500 mg PO BID
[2017-10-16 06:20] LABS: Basophils % 0.1 % (0.1-2.0); Eosinophils # 0.1 K/mm3 (0.0-0.4); Eosinophils % 0.9 % (0.1-12.0); Hematocrit 38.8 % (42.0-52.0); Hemoglobin 12.8 g/dL (14.1-18.0); Lymphocytes % 8.2 K/mm3 (10-50); Mean Corpuscular Hemoglobin 31.2 pg (27.0-31.2); Mean Corpuscular Volume 94.5 fl (80-94); Mean Platelet Volume 7.8 fl (7.4-10.4); Monocytes # 0.9 K/mm3 (0.1-1.0); Monocytes % 7.8 % (1.7-9.3); Neutrophils # 10.1 K/mm3 (1.8-7.8); Neutrophils % 83.1 % (37.0-80.0); Platelet Count 333 K/mm3 (142-424); Red Blood Count 4.11 M/mm3 (4.60-6.20); Red Cell Distribution Width 12.2 % (11.5-17.5); White Blood Count 12.1 K/mm3 (4.8-10.8)
[2017-10-16 06:24] LABS: Anion Gap 3.7 mEq/L (5-15); Potassium 3.7 mmoL/L (3.5-5.1)
--- NOTE | 2017-10-16 07:46 | Progress Note ---
Internal Medicine - PN: Subj *Date: 10/16/17 *Time: 07:45 Exam Vital signs and Labs for Last 24 Hours: Temp Pulse Resp BP Pulse Ox 97.5 F L 87 18 122/69 92 L 10/16/17 04:00 10/16/17 04:00 10/16/17 04:00 10/16/17 04:00 10/16/17 06:30 Laboratory Results - last 24 hr 10/15/17 06:45: Total Counted 100, Neutrophils % (Manual) 86 H, Band Neutrophils % 1.0, Lymphocytes % (Manual) 5 L, Monocytes % (Manual) 8, Platelet Estimate Normal, RBC Morphology Normal 10/15/17 10:28: POC Glucose 234 H 10/15/17 16:57: POC Glucose 225 H 10/15/17 20:29: POC Glucose 257 H 10/16/17 05:42: WBC 12.1 H D, RBC 4.11 L, Hgb 12.8 L, Hct 38.8 L, MCV 94.5 H, MCH 31.2, MCHC 33.0, RDW 12.2, Plt Count 333, MPV 7.8, Neut % (Auto) 83.1 H, Lymph % (Auto) 8.2 L, [place] % (Auto) 7.8, Eos % (Auto) 0.9, Baso % (Auto) 0.1, Neut # (Auto) 10.1 H, Lymph # (Auto) 1.0, [place] # (Auto) 0.9, Eos # (Auto) 0.1, Baso # (Auto) 0.0 10/16/17 05:42: Sodium 135 L, Potassium 3.7 D, Chloride 103, Carbon Dioxide 32 , Anion Gap 3.7 L, BUN 10, Creatinine 0.64 L, Estimated Creat Clear 60, Estimated GFR 122, Est GFR ( Amer) 148, Glucose 221 H, Calcium 8.0 L 10/16/17 06:27: POC Glucose 202 H I & O for Last 24 hours: Intake & Output 10/13/17 10/14/17 10/15/17 10/16/17 23:59 23:59 23:59 23:59 Intake Total 240 / 240 3753 / 3753 3209 / 3209 1074 / 1074 Output Total 3700 / 3700 3800 / 3800 4500 / 4500 1800 / 1800 Balance -3460 / -3460 -47 / -47 -1291 / -1291 -726 / -726 Weight 65.828 kg 65.828 kg Microbiology Reports for the Last 24 Hours: Microbiology 10/12/17 14:36 Blood Blood Culture - Preliminary Pseudomonas aeruginosa 10/12/17 14:36 Blood Blood Culture - Preliminary Pseudomonas aeruginosa Assessment and Plan (1) Systemic inflammatory response syndrome (SIRS) Current visit: Yes Status: Acute Category: Medical Code(s): R65.10 - Systemic inflammatory response syndrome (SIRS) of non-infectious origin without acute organ dysfunction (2) Right lower lobe pneumonia Current visit: Yes Status: Acute Category: Medical Code(s): J18.1 - Lobar pneumonia, unspecified organism (3) Acute kidney injury Current visit: Yes Status: Acute Category: Medical Code(s): N17.9 - Acute kidney failure, unspecified (4) Bladder neck obstruction Current visit: Yes Status: Acute Category: Medical Code(s): N32.0 - Bladder-neck obstruction (5) UTI (urinary tract infection) Current visit: Yes Status: Acute Category: Medical Code(s): N39.0 - Urinary tract infection, site not specified (6) Prostate cancer Current visit: No Status: Chronic Category: Medical Code(s): C61 - Malignant neoplasm of prostate (7) Pseudomonas aeruginosa infection Current visit: Yes Status: Acute Category: Medical Code(s): A49.8 - Other bacterial infections of unspecified site (8) E. coli infection Current visit: Yes Status: Acute Category: Medical Code(s): A49.8 - Other bacterial infections of unspecified site (9) Infection due to Enterobacter cloacae Current visit: Yes Status: Acute Category: Medical Code(s): A49.8 - Other bacterial infections of unspecified site (10) Diabetes mellitus Current visit: Yes Status: Acute Category: Medical Code(s): E11.9 - Type 2 diabetes mellitus without complications The patient's infection will respond to the chosen ABx?: Yes Is the patient receiving the right drug, dose, and route?: Yes Could a more targeted ABx be ordered?: No (SNF ON LEVAQUIN AND CEFEPIME)
== END 2017-10-16 09:15 ==
LOC: ER 13:54 → 2ND 17:00
PROVIDERS: ADMIT Family Medicine; ATTEND Family Medicine

== ENCOUNTER → 2017-11-12 15:16 | Outpatient (CLI) | payer MEDICARE, OTHER, SELFPAY ==
[2017-11-12 15:38] LABS: Basophils # 0.1 K/mm3 (0-0.2); Basophils % 0.5 % (0.1-2.0); Eosinophils # 0.2 K/mm3 (0.0-0.4); Eosinophils % 1.8 % (0.1-12.0); Hematocrit 43.9 % (42.0-52.0); Hemoglobin 14.3 g/dL (14.1-18.0); Lymphocytes # 1.4 K/mm3 (0.7-4.5); Lymphocytes % 11.8 K/mm3 (10-50); Mean Corpuscular HGB Conc 32.5 g/dL (31.8-35.4); Mean Corpuscular Volume 89.3 fl (80-94); Mean Platelet Volume 6.6 fl (7.4-10.4); Monocytes # 0.5 K/mm3 (0.1-1.0); Monocytes % 4.8 % (1.7-9.3); Neutrophils # 9.2 K/mm3 (1.8-7.8); Neutrophils % 81.1 % (37.0-80.0); Platelet Count 492 K/mm3 (142-424); Red Blood Count 4.92 M/mm3 (4.60-6.20); Reticulocyte % (Auto) 2.2 % (0.9-3.2); White Blood Count 11.4 K/mm3 (4.8-10.8)
[2017-11-12 17:04] LABS: Alanine Aminotransferase 24 U/L (12-78); Albumin Level 2.8 gm/dL (3.4-5.0); Albumin/Globulin Ratio 0.7 (1.1-1.8); Alkaline Phosphatase 90 U/L (46-116); Anion Gap 12.9 mEq/L (5-15); Aspartate Amino Transferase 17 U/L (15-37); Bilirubin,Total 0.3 mg/dL (0.2-1.0); Blood Urea Nitrogen 10 mg/dL (7-18); Calcium 8.6 mg/dL (8.5-10.1); Carbon Dioxide 29 mmol/L (21.0-32.0); Chloride 99 mmol/L (98-107); Creatinine,Serum 0.93 mg/dL (0.70-1.30); Estimated Glomerular Filt Rate 79 ml/min (>60); Ferritin 288 ng/mL (8-388); GFR (African American) 96 ML/MIN (>60); Globulin 3.9 gm/dl (1.3-3.2); Glucose 146 mg/dL (74-106); Potassium 3.9 mmoL/L (3.5-5.1); Sodium 137 mmol/L (136-145); Total Protein,Serum 6.7 gm/dL (6.4-8.2)
[2017-11-14 08:22] LABS: Iron 31 ug/dL (38-169); Iron Saturation 15 % (15-55); UIBC 181 ug/dL (111-343)
[2017-11-14 20:25] LABS: Haptoglobin 448 mg/dL (34-200)
== END ==
PROVIDERS: PCP Emergency Medicine; Visit Provider Internal Medicine Hematology & Oncology
DX: D64.9 Anemia, unspecified (principal); R53.83 Other fatigue; R63.4 Abnormal weight loss
CPT/HCPCS: 36415; 80053; 82728; 83010; 83540; 83550; 85025; 85044

== ENCOUNTER 2017-12-10 11:20 | Outpatient (CLI) | payer MEDICARE, OTHER, SELFPAY ==
[2017-12-10 12:29] VITALS: BMI 21.4
--- NOTE | 2017-12-10 12:30 | XR_ITS ---
XR chest portable PICC plac HISTORY: ITS.REASON: PICC line placement ORDERING PHYSICIAN: Chencho Hamilton MD PATIENT AGE: 72 years COMPARISON: 10/13/2017 FINDINGS: Left upper extremity PICC line has been placed. The tip is in position in the region of the superior vena cava. Unremarkable cardiovascular structures. There is COPD with chronic coarsening of the bronchovascular markings with normal heart size and bronchial thickening. IMPRESSION: Good placement of PICC line. Chronic coarsening of bronchovascular markings FINDINGS called to Quintin in Infusion on 12/10/2017 12:45 PM.
== END 2017-12-10 14:50 ==
LOC: INF 11:59
PROVIDERS: PCP Emergency Medicine; Visit Provider Emergency Medicine
DX: N39.0 Urinary tract infection, site not specified (principal)
CPT/HCPCS: 36569; 71045; C1751

== ENCOUNTER 2017-12-27 11:52 | Inpatient (IN) ==
[2017-12-27 12:27] LABS: Basophils # 0.1 K/mm3 (0-0.2); Basophils % 0.4 % (0.1-2.0); Eosinophils # 0.1 K/mm3 (0.0-0.4); Hematocrit 42.8 % (42.0-52.0); Hemoglobin 13.5 g/dL (14.1-18.0); Lymphocytes # 0.9 K/mm3 (0.7-4.5); Lymphocytes % 7.4 K/mm3 (10-50); Mean Corpuscular HGB Conc 31.6 g/dL (31.8-35.4); Mean Corpuscular Hemoglobin 26.8 pg (27.0-31.2); Mean Corpuscular Volume 84.6 fl (80-94); Mean Platelet Volume 6.8 fl (7.4-10.4); Monocytes # 0.8 K/mm3 (0.1-1.0); Neutrophils % 85.3 % (37.0-80.0); Platelet Count 601 K/mm3 (142-424); Red Blood Count 5.06 M/mm3 (4.60-6.20); Red Cell Distribution Width 13.8 % (11.5-17.5); White Blood Count 12.9 K/mm3 (4.8-10.8)
[2017-12-27 12:37] LABS: Albumin Level 2.7 gm/dL (3.4-5.0); Albumin/Globulin Ratio 0.5 (1.1-1.8); Anion Gap 10.2 mEq/L (5-15); Bilirubin,Total 0.3 mg/dL (0.2-1.0); Calcium 9.4 mg/dL (8.5-10.1); Globulin 5.1 gm/dl (1.3-3.2); Potassium 3.2 mmoL/L (3.5-5.1); Total Protein,Serum 7.8 gm/dL (6.4-8.2)
[2017-12-27 12:42] LABS: Lymphocytes % 8 % (10-50); Monocytes % 11 % (2-9); Neutrophils % 81 % (42-76); Total Cells Counted 100
[2017-12-27 12:43] LABS: RBC Morphology Normal
[2017-12-27 13:03] LABS: ABG Base Excess 6.1 mmol/L (-2.4-2.3); ABG Oxygen Saturation 90 % (90-100); ABG PCO2 36.8 mmhg (35.0-45.0); ABG PH 7.52 mmol/L (7.35-7.45); ABG PO2 57.4 mmhg (80-100); ABG TCO2 30.2 mmhg (23-27)
[2017-12-27 13:05] LABS: Allen's Test Acceptable; Oxygen 32 %
--- NOTE | 2017-12-27 13:10 | Emergency Department Note ---
ED Disposition Clinical Impression: RLL pneumonia, Altered mental status, Sacral decubitus ulcer, stage IV, Dementia, DNR (do not resuscitate) Disposition: Still a Patient Condition on Discharge: Fair Instructions: DI for Altered Mental Status Referrals: Chencho Hamilton MD [Primary Care Provider] - - Critical Care Critical Care Time: No Attestation: On 12/27/17, the high probability of a clinically significant, sudden or life threatening deterioration of the following system(s) required my full and direct attention, intervention and personal management. The time I documented below is in addition to time spent performing reported procedures but includes the following listed in this critical care notation. Medical Decision Making - Medical Records Medical records reviewed: Yes: I reviewed the patient's medical records. - Dg Inquiry Pt receiving controlled substance: No Dg was queried for this patient: No Vital Signs: 12/27/17 11:53 12/27/17 12:02 Temperature 99.8 F H Temperature Source Oral Pulse Rate [Left Radial] 97 H Respiratory Rate 18 Blood Pressure [Right Arm] 142/78 H Blood Pressure Mean [Right Arm] 99 Blood Pressure Source [Right Arm] Automatic Cuff Blood Pressure Position [Right Arm] Sitting 02 Sat by Pulse Oximetry 87 L 91 L Oxygen Delivery Method Room Air Nasal Cannula Oxygen Flow Rate (LPM) 3 - Lab Data Lab Results 12/27/17 12:03: WBC 12.9 H, RBC 5.06, Hgb 13.5 L, Hct 42.8, MCV 84.6, MCH 26.8 L , MCHC 31.6 L, RDW 13.8, Plt Count 601 H, MPV 6.8 L, Neut % (Auto) 85.3 H, Lymph % (Auto) 7.4 L, [place] % (Auto) 6.0, Eos % (Auto) 1.0, Baso % (Auto) 0.4, Neut # (Auto) 11.0 H, Lymph # (Auto) 0.9, [place] # (Auto) 0.8, Eos # (Auto) 0.1, Baso # (Auto) 0.1, Total Counted 100, Neutrophils % (Manual) 81 H, Lymphocytes % (Manual) 8 L, Monocytes % (Manual) 11 H, Platelet Estimate Moderate increase, RBC Morphology Normal 12/27/17 12:03: Sodium 143, Potassium 3.2 L, Chloride 103, Carbon Dioxide 33 H, Anion Gap 10.2, BUN 15, Creatinine 0.83, Estimated Creat Clear 71, Estimated GFR 91, Est GFR ( Amer) 110, Glucose 137 H, Calcium 9.4, Total Bilirubin 0.3, AST 30, ALT 17, Alkaline Phosphatase 70, Total Protein 7.8, Albumin 2.7 L, Globulin 5.1 H, Albumin/Globulin Ratio 0.5 L 12/27/17 12:03: Lactate 1.4 12/27/17 12:18: Specimen Source Rt radial, O2 % 32, ABG pH 7.52 H, ABG pCO2 36.8, ABG pO2 57.4 L, ABG HCO3 29.0 H, ABG Total CO2 30.2 H, ABG O2 Saturation 90, ABG Base Excess 6.1 H, Spencer Test Acceptable Result diagrams: 12/27/17 12:03 12/27/17 12:03 Orders (Tests/Meds): ORDERS Category Date Time Status CT head/brain wo con Stat Cat Scan 12/27/17 12:17 Taken XR chest AP Stat Exams 12/27/17 12:17 Taken Urinalysis (cathed specimen) Stat Lab 12/27/17 12:16 Ordered Blood Culture Stat Micro 12/27/17 12:03 Received ABG [Arterial Blood Gas] Stat RT 12/27/17 12:18 Ordered - Radiology Data #1 Image(s): Chest Image Reviewed: Yes I reviewed the patient's radiology image Preliminary Findings: Abnormal Right middle and right lower lobe infiltrates cannot exclude left lower lobe infiltrate. Medical Decision Narrative: I spoke with Dr. Carvalho about his clinical findings, operatory findings and chest x-ray. He is high risk for staph pneumonia and healthcare acquired pneumonia. Dr. Carvalho want to start him on cefepime and vancomycin and continue Levaquin. Order urine culture. Spoke with the patient's daughter who confirmed that the patient is DNR. General Adult HPI - General Chief complaint: Altered Mental Status Stated complaint: ams Time Seen by Provider: 12/27/17 12:00 Mode of Arrival: EMS Limitations: Altered Mental Status Description of Symptoms (Recalled from ER Triage Doc. by RN): to ed per squad pt resident [facility] sent for eval due to altered mental status x 2 days pt with hx of dementia but usually up walking around NH. bs 192 - History of Present Illness HPI narrative: 72 years old white male with complex past medical history including stage IV sacral decubitus ulcer, UTI with the staff and ESBL, prostatic cancer, indwelling Olivier catheter, dementia, hypothyroidism actinic keratosis and onychomycosis. Today the patient was sent to the ED today from the assisted because of lethargy and low saturation. Upon arrival he was placed on 4 L nasal cannula and sats were 91%. Onset (ago): hour(s) Radiation: non-radiation Severity: mild Relieving factors: other (Oxygen therapy) Exacerbating factors: none Associated symptoms: confusion, shortness of breath - Related Data Home Medications Medication Instructions Recorded Confirmed Acetaminophen [Tylenol Extra 1,000 mg PO Q8HP PRN 10/12/17 12/27/17 Strength] Lactulose [Lactulose 10gm/15ml 20 gm PO DAILYP PRN 10/12/17 12/27/17 Oral Soln] Nicotine [Nicotine Patch] 14 mg TD DAILY 10/12/17 12/27/17 divalproex 125 mg tablet,delayed 250 mg PO BID 12/15/17 12/27/17 release Glimepiride 1 mg PO DAILY 12/27/17 12/27/17 Previous Rx's Medication Instructions Recorded risperiDONE [Risperdal 0.5mg 0.5 mg PO BID #0 10/16/17 tablet] Allergies Allergy/AdvReac Type Severity Reaction Status Date / Time No Known Allergies Allergy Verified 12/15/17 08:43 [facility] History I have reviewed the patient's past medical history: Yes Medical History: Reports:: Cancer, Diabetes Mellitus Type 2 Denies:: Diabetes Mellitus Type 1, MRSA Other Medical History: Denies: Anemia Other Surgeries: Yes: No Previous Surgery, Other Amputation: No Fractures: No - Social History Smoking Status: Current every day smoker Tobacco Type: cigarettes #Yrs smoked (if former smoker): 60 Alcohol Intake: never Occupational Status: retired Housing: assisted Household Members: caregiver - Psychiatric History Expresses thoughts of harming self/others: None Suicide Plan Description: No Plan Family Hx:: Unable to obtain ROS Obtained: Yes All systems reviewed & no additional complaints Physical Exam - General General appearance: alert, in no apparent distress, lethargic - Head Head exam: atraumatic, normocephalic, normal inspection - Eye Eye exam: Present: normal appearance, PERRL, EOMI. Absent: scleral icterus, nystagmus - ENT ENT exam: Present: normal exam, normal oropharynx, mucous membranes moist, TM's normal bilaterally, normal external ear exam - Neck Neck exam: Present: normal inspection, full ROM, trachea midline. Absent: tenderness, meningismus, lymphadenopathy - Chest Chest inspection: Present: normal inspection, symmetric chest wall rise. A bsent: tenderness - Respiratory Respiratory exam: Present: normal lung sounds bilaterally. Absent: respiratory distress, wheezes - Cardiovascular Cardiovascular exam: Present: regular rate, normal rhythm, normal heart sounds. Absent: JVD - Abdominal Exam Abdominal exam: Present: soft, normal bowel sounds. Absent: distention, tenderness, guarding, rebound, rigidity - exam: Present: normal inspection - Extremities Exam Extremities exam: Present: normal inspection, full ROM, normal capillary refill. Absent: tenderness, pedal edema, joint swelling, calf tenderness - Back Exam Back exam: Present: normal inspection. Absent: tenderness, CVA tenderness (R), CVA tenderness (L), paraspinal tenderness - Neurological Exam Neurological exam: Present: alert, CN II-XII intact, motor sensory deficit, reflexes normal, other (Contractures.) - Psychiatric Psychiatric exam: Present: normal affect, normal mood - Skin Skin exam: Present: warm, dry, normal color, other (Stage IV sacral decubitus ulcer with clean dressing. ) - Lymphatic Lymphatic Findings: no adenopathy
--- NOTE | 2017-12-27 14:35 | Pharmacy Consult Notes ---
[facility] Pharmacy VTE Monitoring - Patient Demographics Admission date: 12/27/17 Report Date: 12/27/17 Time: 14:35 Allergies/Adverse Reactions: Patient Allergies No Known Allergies Allergy (Verified 12/15/17 08:43) Height: 1.73 m Weight: 58.627 kg Patient Problems: Current Active Problems Dementia (Acute) Right lower lobe pneumonia (Acute) Altered mental status (Acute) Sacral decubitus ulcer, stage IV (Acute) DNR (do not resuscitate) (Acute) - VTE Risk Labs: VTE Related Lab Results Hgb 13.5 g/dL (14.1-18.0) L 12/27/17 12:03 Hct 42.8 % (42.0-52.0) 12/27/17 12:03 Plt Count 601 K/mm3 (142-424) H 12/27/17 12:03 BUN 15 mg/dL (7-18) 12/27/17 12:03 Creatinine 0.83 mg/dL (0.70-1.30) 12/27/17 12:03 Estimated Creat Clear 71 mL/min (0-300) 12/27/17 12:03 Was VTE Risk Assessment Performed: Yes VTE Score: 4 VTE Risk Level: Low Risk Clinical Trial Participant: No - Prophylaxis VTE Prophylaxis Ordered?: Yes Types of VTE Prophylaxis: TEDS Knee High
[2017-12-28 07:05] LABS: Basophils # 0.1 K/mm3 (0-0.2); Basophils % 0.6 % (0.1-2.0); Eosinophils # 0.2 K/mm3 (0.0-0.4); Eosinophils % 1.6 % (0.1-12.0); Hematocrit 35.9 % (42.0-52.0); Lymphocytes # 0.8 K/mm3 (0.7-4.5); Lymphocytes % 7.5 K/mm3 (10-50); Mean Corpuscular Hemoglobin 26.4 pg (27.0-31.2); Mean Platelet Volume 6.9 fl (7.4-10.4); Monocytes # 0.7 K/mm3 (0.1-1.0); Monocytes % 6.7 % (1.7-9.3); Neutrophils % 83.6 % (37.0-80.0); Platelet Count 444 K/mm3 (142-424); Red Blood Count 4.22 M/mm3 (4.60-6.20); Red Cell Distribution Width 13.8 % (11.5-17.5); White Blood Count 10.7 K/mm3 (4.8-10.8)
[2017-12-28 07:16] LABS: Anion Gap 7.5 mEq/L (5-15); Calcium 8.6 mg/dL (8.5-10.1); Phosphorous 3.3 mg/dL (2.4-4.9); Potassium 3.5 mmoL/L (3.5-5.1)
[2017-12-28 07:34] LABS: Hemoglobin 11.2 g/dL (14.1-18.0)
--- NOTE | 2017-12-28 08:32 | Pharmacy Consult Notes ---
- Pharmacy Consult Date: 12/28/17 Time: 08:30 Referring provider: DR. ZAPIEN Reason for Consult:: VANCOMYCIN DOSING Allergies and ADEs:: Allergies Allergy/AdvReac Type Severity Reaction Status Date / Time No Known Allergies Allergy Verified 12/15/17 08:43 Home Medications:: Home Medications Medication Instructions Recorded Confirmed Type Acetaminophen [Tylenol Extra 1,000 mg PO Q8HP PRN 10/12/17 12/27/17 History Strength] Lactulose [Lactulose 10gm/15ml 20 gm PO DAILYP PRN 10/12/17 12/27/17 History Oral Soln] Nicotine [Nicotine Patch] 14 mg TD DAILY 10/12/17 12/27/17 History divalproex 125 mg tablet,delayed 125 mg PO BID 12/15/17 12/27/17 History release Acetic Acid 1 applicatio TOPICAL BID 12/27/17 12/27/17 History Dimethicone [Remedy Nutrashield] 1 applicatio TP DAILY 12/27/17 12/27/17 History Dimethicone [Remedy Skin Repair] 1 applicatio TP BID 12/27/17 12/27/17 History Finasteride [Proscar] 5 mg PO DAILY 12/27/17 12/27/17 History Glimepiride 1 mg PO DAILY 12/27/17 12/27/17 History Hydrocodone/Acetaminophen [[place]mmett 1 each PO BID 12/27/17 12/27/17 History 5-325 Tablet] Nitrofurantoin Monohyd/M-Cryst 100 mg PO BID 12/27/17 12/27/17 History [Macrobid 100 mg Capsule] Tamsulosin HCl [Flomax 0.4mg 0.4 mg PO DAILY 12/27/17 12/27/17 History capsule] Triamcinolone Acetonide [Kenalog 1 applicatio TP BIDP PRN 12/27/17 12/27/17 History 0.1% cream 30gm tube] clonazePAM [Clonazepam] 0.5 mg PO TID 12/27/17 12/28/17 History levoFLOXacin [Levaquin 500mg 500 mg PO DAILY 12/27/17 12/27/17 History tab] risperiDONE [Risperdal 1mg Tablet] 1 mg PO BID 12/28/17 12/28/17 History Height: 1.73 m Weight: 58.627 kg Laboratory Results:: Laboratory Results - last 24 hr 12/27/17 12:03: WBC 12.9 H, RBC 5.06, Hgb 13.5 L, Hct 42.8, MCV 84.6, MCH 26.8 L , MCHC 31.6 L, RDW 13.8, Plt Count 601 H, MPV 6.8 L, Neut % (Auto) 85.3 H, Lymph % (Auto) 7.4 L, [place] % (Auto) 6.0, Eos % (Auto) 1.0, Baso % (Auto) 0.4, Neut # (Auto) 11.0 H, Lymph # (Auto) 0.9, [place] # (Auto) 0.8, Eos # (Auto) 0.1, Baso # (Auto) 0.1, Total Counted 100, Neutrophils % (Manual) 81 H, Lymphocytes % (Manual) 8 L, Monocytes % (Manual) 11 H, Platelet Estimate Moderate increase, RBC Morphology Normal 12/27/17 12:03: Sodium 143, Potassium 3.2 L, Chloride 103, Carbon Dioxide 33 H, Anion Gap 10.2, BUN 15, Creatinine 0.83, Estimated Creat Clear 71, Estimated GFR 91, Est GFR ( Amer) 110, Glucose 137 H, Calcium 9.4, Total Bilirubin 0.3, AST 30, ALT 17, Alkaline Phosphatase 70, Total Protein 7.8, Albumin 2.7 L, Globulin 5.1 H, Albumin/Globulin Ratio 0.5 L 12/27/17 12:03: Lactate 1.4 12/27/17 12:18: Specimen Source Rt radial, O2 % 32, ABG pH 7.52 H, ABG pCO2 36.8, ABG pO2 57.4 L, ABG HCO3 29.0 H, ABG Total CO2 30.2 H, ABG O2 Saturation 90, ABG Base Excess 6.1 H, Spencer Test Acceptable 12/27/17 13:25: Urine Color Yellow, Urine Appearance Turbid, Urine pH 8.5, Ur Specific [place] 1.015, Urine Protein Trace, Urine Glucose (UA) Negative, Urine Ketones Negative, Urine Blood 2+, Urine Nitrate Negative, Urine Bilirubin Negative, Urine Urobilinogen 1.0, Ur Leukocyte Esterase 1+ A, Urine RBC 5-10, Urine WBC 20-50 A, Ur Squamous Epith Cells Occasional, Urine Bacteria 4+ A, Urine Yeast 4+ 12/28/17 06:28: WBC 10.7, RBC 4.22 L, Hgb 11.2 L D, Hct 35.9 L, MCV 85.0, MCH 26.4 L, MCHC 31.0 L, RDW 13.8, Plt Count 444 H D, MPV 6.9 L, Neut % (Auto) 83.6 H, Lymph % (Auto) 7.5 L, [place] % (Auto) 6.7, Eos % (Auto) 1.6, Baso % (Auto) 0.6, Neut # (Auto) 9.0 H, Lymph # (Auto) 0.8, [place] # (Auto) 0.7, Eos # (Auto) 0.2, Baso # (Auto) 0.1 12/28/17 06:28: Sodium 144, Potassium 3.5, Chloride 109 H, Carbon Dioxide 31, Anion Gap 7.5, BUN 12, Creatinine 0.77, Estimated Creat Clear 54, Estimated GFR 99, Est GFR ( Amer) 119, Glucose 146 H, Calcium 8.6, Phosphorus 3.3, Magnesium 2.1 Medical History: Reports:: Diabetes Mellitus Type 2 Denies:: Cancer, Diabetes Mellitus Type 1, MRSA Assessment and Plan - Assessment and plan all Dx Assessment and Plan for all problems:: BASED ON PATIENT FACTORS, RECOMMEND VANCOMYCIN 1500 MG IV ONCE, FOLLOWED BY VANCOMYCIN 1 GM IV Q12H. PHARMACY WILL FOLLOW DAILY AND ADJUST APPROPRIATE.
--- NOTE | 2017-12-28 08:51 | History & Physical Report ---
*Admission Date: 12/27/17 *Chief complaint: change in mental status *History of present illness: this wm who resides at [facility] and had change in mental status and sent to ed for eval-years old white male with complex past medical history including stage IV sacral decubitus ulcer, UTI with the staff and ESBL, prostatic cancer, indwelling Olivier catheter, dementia, hypothyroidism actinic keratosis and onychomycosis [facility] History I have reviewed the patient's past medical history: Yes Medical History: Reports:: Diabetes Mellitus Type 2 Denies:: Cancer, Diabetes Mellitus Type 1, MRSA Other Medical History: Denies: Anemia Other Surgeries: Yes: No Previous Surgery, Other (hernia) Amputation: No Fractures: No - *Social History Educational Level: Completed High School Smoking Status: Former smoker Tobacco Type: cigarettes # Packs/Day (cigarettes): 3 #Yrs smoked (if former smoker): 13 Smoking End Date: 09/13/2017 Alcohol Intake: never Occupational Status: retired Housing: correction Household Members: caregiver - Psychiatric History Expresses thoughts of harming self/others: None Suicide Plan Description: No Plan *Family Hx:: Cancer Review of Systems - Review of Systems Review of systems:: pertinent systems reviewed and negative unless documented below - Constitutional Denies fever(s) - Eyes Denies change in vision - ENT Denies sore throat - *Cardiovascular Denies chest pain - *Respiratory Reports cough - *Gastrointestinal Denies abdominal pain - *Musculoskeletal Denies joint pain - Integumentary/Breasts Denies rash - *Neurologic Reports localized weakness, Denies seizure-like activity - Psychiatric Reports other Meds Home Medications Medication Instructions Recorded Confirmed Type Acetaminophen [Tylenol Extra 1,000 mg PO Q8HP PRN 10/12/17 12/27/17 History Strength] Lactulose [Lactulose 10gm/15ml 20 gm PO DAILYP PRN 10/12/17 12/27/17 History Oral Soln] Nicotine [Nicotine Patch] 14 mg TD DAILY 10/12/17 12/27/17 History divalproex 125 mg tablet,delayed 125 mg PO BID 12/15/17 12/27/17 History release Acetic Acid 1 applicatio TOPICAL BID 12/27/17 12/27/17 History Dimethicone [Remedy Nutrashield] 1 applicatio TP DAILY 12/27/17 12/27/17 History Dimethicone [Remedy Skin Repair] 1 applicatio TP BID 12/27/17 12/27/17 History Finasteride [Proscar] 5 mg PO DAILY 12/27/17 12/27/17 History Glimepiride 1 mg PO DAILY 12/27/17 12/27/17 History Hydrocodone/Acetaminophen [[place] 1 each PO BID 12/27/17 12/27/17 History 5-325 Tablet] Nitrofurantoin Monohyd/M-Cryst 100 mg PO BID 12/27/17 12/27/17 History [Macrobid 100 mg Capsule] Tamsulosin HCl [Flomax 0.4mg 0.4 mg PO DAILY 12/27/17 12/27/17 History capsule] Triamcinolone Acetonide [Kenalog 1 applicatio TP BIDP PRN 12/27/17 12/27/17 History 0.1% cream 30gm tube] clonazePAM [Clonazepam] 0.5 mg PO TID 12/27/17 12/28/17 History levoFLOXacin [Levaquin 500mg 500 mg PO DAILY 12/27/17 12/27/17 History tab] risperiDONE [Risperdal 1mg Tablet] 1 mg PO BID 12/28/17 12/28/17 History Allergies Allergy/AdvReac Type Severity Reaction Status Date / Time No Known Allergies Allergy Verified 12/15/17 08:43 Exam Vital signs and Labs for Last 24 Hours: Temp Pulse Resp BP Pulse Ox 98.8 F 86 16 137/65 92 L 12/28/17 08:00 12/28/17 08:00 12/28/17 08:00 12/28/17 08:00 12/28/17 08:00 Laboratory Results - last 24 hr 12/27/17 12:03: WBC 12.9 H, RBC 5.06, Hgb 13.5 L, Hct 42.8, MCV 84.6, MCH 26.8 L , MCHC 31.6 L, RDW 13.8, Plt Count 601 H, MPV 6.8 L, Neut % (Auto) 85.3 H, Lymph % (Auto) 7.4 L, [place] % (Auto) 6.0, Eos % (Auto) 1.0, Baso % (Auto) 0.4, Neut # (Auto) 11.0 H, Lymph # (Auto) 0.9, [place] # (Auto) 0.8, Eos # (Auto) 0.1, Baso # (Auto) 0.1, Total Counted 100, Neutrophils % (Manual) 81 H, Lymphocytes % (Manual) 8 L, Monocytes % (Manual) 11 H, Platelet Estimate Moderate increase, RBC Morphology Normal 12/27/17 12:03: Sodium 143, Potassium 3.2 L, Chloride 103, Carbon Dioxide 33 H, Anion Gap 10.2, BUN 15, Creatinine 0.83, Estimated Creat Clear 71, Estimated GFR 91, Est GFR ( Amer) 110, Glucose 137 H, Calcium 9.4, Total Bilirubin 0.3, AST 30, ALT 17, Alkaline Phosphatase 70, Total Protein 7.8, Albumin 2.7 L, Globulin 5.1 H, Albumin/Globulin Ratio 0.5 L 12/27/17 12:03: Lactate 1.4 12/27/17 12:18: Specimen Source Rt radial, O2 % 32, ABG pH 7.52 H, ABG pCO2 36.8, ABG pO2 57.4 L, ABG HCO3 29.0 H, ABG Total CO2 30.2 H, ABG O2 Saturation 90, ABG Base Excess 6.1 H, Spencer Test Acceptable 12/27/17 13:25: Urine Color Yellow, Urine Appearance Turbid, Urine pH 8.5, Ur Specific [place] 1.015, Urine Protein Trace, Urine Glucose (UA) Negative, Urine Ketones Negative, Urine Blood 2+, Urine Nitrate Negative, Urine Bilirubin Negative, Urine Urobilinogen 1.0, Ur Leukocyte Esterase 1+ A, Urine RBC 5-10, Urine WBC 20-50 A, Ur Squamous Epith Cells Occasional, Urine Bacteria 4+ A, Urine Yeast 4+ 12/28/17 06:28: WBC 10.7, RBC 4.22 L, Hgb 11.2 L D, Hct 35.9 L, MCV 85.0, MCH 26.4 L, MCHC 31.0 L, RDW 13.8, Plt Count 444 H D, MPV 6.9 L, Neut % (Auto) 83.6 H, Lymph % (Auto) 7.5 L, [place] % (Auto) 6.7, Eos % (Auto) 1.6, Baso % (Auto) 0.6, Neut # (Auto) 9.0 H, Lymph # (Auto) 0.8, [place] # (Auto) 0.7, Eos # (Auto) 0.2, Baso # (Auto) 0.1 12/28/17 06:28: Sodium 144, Potassium 3.5, Chloride 109 H, Carbon Dioxide 31, Anion Gap 7.5, BUN 12, Creatinine 0.77, Estimated Creat Clear 54, Estimated GFR 99, Est GFR ( Amer) 119, Glucose 146 H, Calcium 8.6, Phosphorus 3.3, Magnesium 2.1 I & O for Last 24 hours: Intake & Output 12/25/17 12/26/17 12/27/17 12/28/17 11:59 11:59 11:59 11:59 Intake Total 2204 / 2204 Output Total 1100 / 1100 Balance 1104 / 1104 Weight 170 lb 129 lb 4 oz Microbiology Reports for the Last 24 Hours: Microbiology 12/27/17 13:25 Urine,Catheterized Urine Culture - Preliminary - Constitutional thin, somnolent - *Routine HEENT Exam Head: Present: normocephalic Eye: Present: EOMI, PERRL ENT: Present: mucous membranes dry - *Routine Neck Exam Present: supple - *Routine Respiratory Exam Present: decreased breath sounds - *Routine Cardiovascular Exam Present: RRR, murmur, S4 - *Routine Abdominal Exam Present: soft - *Routine Extremities Exam Present: edema - *Routine Skin Exam Comments: stage 4 decubitus - *Routine Neurological Exam Present: CN II-XII intact, altered mental status - Routine Psychiatric Exam Present: unable to assess Assessment and Plan (1) UTI (urinary tract infection) Current visit: Yes Status: Acute Category: Medical Code(s): N39.0 - Urinary tract infection, site not specified (2) Decubitus ulcer of coccygeal region, stage 4 Current visit: Yes Status: Acute Category: Medical Code(s): L89.154 - Pressure ulcer of sacral region, stage 4
--- NOTE | 2017-12-29 09:19 | Progress Note ---
Internal Medicine - PN: Subj *Date: 12/29/17 *Time: 08:30 Interval history: more alert but still not at baseline Exam Vital signs and Labs for Last 24 Hours: Temp Pulse Resp BP Pulse Ox 97.2 F L 96 H 18 158/88 H 94 L 12/29/17 08:00 12/29/17 08:00 12/29/17 08:00 12/29/17 08:00 12/29/17 08:00 I & O for Last 24 hours: Intake & Output 12/26/17 12/27/17 12/28/17 12/29/17 11:59 11:59 11:59 11:59 Intake Total 2354 / 2354 989 / 989 Output Total 1100 / 1100 1600 / 1600 Balance 1254 / 1254 -611 / -611 Weight 170 lb 129 lb 4 oz 129 lb 4.006 oz Microbiology Reports for the Last 24 Hours: Microbiology 12/27/17 13:25 Urine,Catheterized Urine Culture - Final Yeast - Constitutional no acute distress, cachectic - *Routine HEENT Exam Head: Present: normocephalic Eye: Present: EOMI, PERRL ENT: Present: mucous membranes dry - *Routine Neck Exam Absent: JVD - *Routine Respiratory Exam Present: decreased breath sounds - *Routine Cardiovascular Exam Present: RRR, murmur, S4 - *Routine Abdominal Exam Present: soft - *Routine Extremities Exam Absent: calf tenderness - *Routine Skin Exam Present: intact - *Routine Neurological Exam Present: CN II-XII intact - Routine Psychiatric Exam Present: unable to assess Assessment and Plan (1) UTI (urinary tract infection) Current visit: Yes Status: Acute Category: Medical Code(s): N39.0 - Urinary tract infection, site not specified (2) Decubitus ulcer of coccygeal region, stage 4 Current visit: Yes Status: Acute Category: Medical Code(s): L89.154 - Pressure ulcer of sacral region, stage 4 (3) Dysphagia Current visit: Yes Status: Acute Category: Medical Code(s): R13.10 - Dysphagia, unspecified (4) Low body mass index (BMI) Current visit: Yes Status: Acute Category: Medical
[2017-12-29 10:37] LABS: Basophils # 0.1 K/mm3 (0-0.2); Basophils % 0.5 % (0.1-2.0); Eosinophils # 0.2 K/mm3 (0.0-0.4); Eosinophils % 1.8 % (0.1-12.0); Hematocrit 39.8 % (42.0-52.0); Hemoglobin 12.3 g/dL (14.1-18.0); Lymphocytes # 0.9 K/mm3 (0.7-4.5); Lymphocytes % 8.3 K/mm3 (10-50); Mean Corpuscular HGB Conc 30.9 g/dL (31.8-35.4); Mean Corpuscular Hemoglobin 26.3 pg (27.0-31.2); Mean Corpuscular Volume 85.1 fl (80-94); Mean Platelet Volume 6.8 fl (7.4-10.4); Monocytes # 0.6 K/mm3 (0.1-1.0); Monocytes % 5.4 % (1.7-9.3); Neutrophils # 9.3 K/mm3 (1.8-7.8); Platelet Count 494 K/mm3 (142-424); Red Blood Count 4.67 M/mm3 (4.60-6.20); Red Cell Distribution Width 13.8 % (11.5-17.5); White Blood Count 11.1 K/mm3 (4.8-10.8)
[2017-12-29 10:38] LABS: Anion Gap 7.2 mEq/L (5-15); Calcium 8.7 mg/dL (8.5-10.1); Potassium 3.2 mmoL/L (3.5-5.1)
--- NOTE | 2017-12-30 10:23 | Pharmacy Consult Notes ---
- Pharmacy Consult Date: 12/30/17 Time: 10:22 Referring provider: DR. ZAPIEN Reason for Consult:: VANCOMYCIN TROUGH LEVEL Allergies and ADEs:: Allergies Allergy/AdvReac Type Severity Reaction Status Date / Time No Known Allergies Allergy Verified 12/15/17 08:43 Home Medications:: Home Medications Medication Instructions Recorded Confirmed Type Acetaminophen [Tylenol Extra 1,000 mg PO Q8HP PRN 10/12/17 12/27/17 History Strength] Lactulose [Lactulose 10gm/15ml 20 gm PO DAILYP PRN 10/12/17 12/27/17 History Oral Soln] Nicotine [Nicotine Patch] 14 mg TD DAILY 10/12/17 12/27/17 History divalproex 125 mg tablet,delayed 125 mg PO BID 12/15/17 12/27/17 History release Acetic Acid 1 applicatio TOPICAL BID 12/27/17 12/27/17 History Dimethicone [Remedy Nutrashield] 1 applicatio TP DAILY 12/27/17 12/27/17 History Dimethicone [Remedy Skin Repair] 1 applicatio TP BID 12/27/17 12/27/17 History Finasteride [Proscar] 5 mg PO DAILY 12/27/17 12/27/17 History Glimepiride 1 mg PO DAILY 12/27/17 12/27/17 History Hydrocodone/Acetaminophen [[place] 1 each PO BID 12/27/17 12/27/17 History 5-325 Tablet] Nitrofurantoin Monohyd/M-Cryst 100 mg PO BID 12/27/17 12/27/17 History [Macrobid 100 mg Capsule] Tamsulosin HCl [Flomax 0.4mg 0.4 mg PO DAILY 12/27/17 12/27/17 History capsule] Triamcinolone Acetonide [Kenalog 1 applicatio TP BIDP PRN 12/27/17 12/27/17 History 0.1% cream 30gm tube] clonazePAM [Clonazepam] 0.5 mg PO TID 12/27/17 12/28/17 History levoFLOXacin [Levaquin 500mg 500 mg PO DAILY 12/27/17 12/27/17 History tab] risperiDONE [Risperdal 1mg Tablet] 1 mg PO BID 12/28/17 12/28/17 History Height: 1.7 m Weight: 58.627 kg Laboratory Results:: Laboratory Results - last 24 hr 12/29/17 10:26: WBC 11.1 H, RBC 4.67, Hgb 12.3 L, Hct 39.8 L, MCV 85.1, MCH 26.3 L, MCHC 30.9 L, RDW 13.8, Plt Count 494 H, MPV 6.8 L, Neut % (Auto) 84.0 H, Lymph % (Auto) 8.3 L, [place] % (Auto) 5.4, Eos % (Auto) 1.8, Baso % (Auto) 0.5, Neut # (Auto) 9.3 H, Lymph # (Auto) 0.9, [place] # (Auto) 0.6, Eos # (Auto) 0.2, Baso # (Auto) 0.1 12/29/17 10:26: Sodium 141, Potassium 3.2 L, Chloride 107, Carbon Dioxide 30, Anion Gap 7.2, BUN 9, Creatinine 0.71, Estimated Creat Clear 54, Estimated GFR 108, Est GFR ( Amer) 131, Glucose 159 H, Calcium 8.7 12/29/17 13:04: Urine Color Yellow, Urine Appearance Cloudy, Urine pH 6.0, Ur Specific [place] >= 1.030, Urine Protein 2+, Urine Glucose (UA) Negative, Urine Ketones Negative, Urine Blood 3+, Urine Nitrate Negative, Urine Bilirubin Negative, Urine Urobilinogen 0.2, Ur Leukocyte Esterase 1+ A, Urine RBC 5-10, Urine WBC Tntc A, Urine Bacteria 4+ A 12/30/17 08:33: Vancomycin Trough 11.6 Medical History: Reports:: Diabetes Mellitus Type 2 Denies:: Cancer, Diabetes Mellitus Type 1, MRSA Assessment and Plan (1) UTI (urinary tract infection) Current visit: Yes Status: Acute Category: Medical Code(s): N39.0 - Urinary tract infection, site not specified (2) Decubitus ulcer of coccygeal region, stage 4 Current visit: Yes Status: Acute Category: Medical Code(s): L89.154 - Pressure ulcer of sacral region, stage 4 (3) Dysphagia Current visit: Yes Status: Acute Category: Medical Code(s): R13.10 - Dysphagia, unspecified (4) Low body mass index (BMI) Current visit: Yes Status: Acute Category: Medical - Assessment and plan all Dx Assessment and Plan for all problems:: BASED ON PATIENT FACTORS AND VANCOMYCIN TROUGH LEVEL, RECOMMEND CONTINUING VANCOMYCIN 1 GM IV Q12H. PHARMACY WILL CONTINUE TO MONITOR DAILY AND ADJUST APPROPIATE.
--- NOTE | 2017-12-30 11:38 | Progress Note ---
Internal Medicine - PN: Subj *Date: 12/30/17 *Time: 11:38 Exam Vital signs and Labs for Last 24 Hours: Temp Pulse Resp BP Pulse Ox 98.4 F 91 H 16 135/58 L 96 12/30/17 08:00 12/30/17 08:00 12/30/17 08:08 12/30/17 08:00 12/30/17 08:00 Laboratory Results - last 24 hr 12/29/17 10:26: Sodium 141, Potassium 3.2 L, Chloride 107, Carbon Dioxide 30, Anion Gap 7.2, BUN 9, Creatinine 0.71, Estimated Creat Clear 54, Estimated GFR 108, Est GFR ( Amer) 131, Glucose 159 H, Calcium 8.7 12/29/17 13:04: Urine Color Yellow, Urine Appearance Cloudy, Urine pH 6.0, Ur Specific [place] >= 1.030, Urine Protein 2+, Urine Glucose (UA) Negative, Urine Ketones Negative, Urine Blood 3+, Urine Nitrate Negative, Urine Bilirubin Negative, Urine Urobilinogen 0.2, Ur Leukocyte Esterase 1+ A, Urine RBC 5-10, Urine WBC Tntc A, Urine Bacteria 4+ A 12/30/17 08:33: Vancomycin Trough 11.6 I & O for Last 24 hours: Intake & Output 12/27/17 12/28/17 12/29/17 12/30/17 23:59 23:59 23:59 23:59 Intake Total 1429 / 1429 2064 / 2064 2941 / 2941 2120 / 2120 Output Total 450 / 450 650 / 650 2500 / 2500 600 / 600 Balance 979 / 979 1414 / 1414 441 / 441 1520 / 1520 Weight 58.627 kg 58.627 kg 58.627 kg Microbiology Reports for the Last 24 Hours: Microbiology 12/27/17 12:03 Blood Blood Culture - Preliminary NO GROWTH AFTER 48 HOURS 12/27/17 12:03 Blood Blood Culture - Preliminary NO GROWTH AFTER 48 HOURS Assessment and Plan (1) UTI (urinary tract infection) Current visit: Yes Status: Acute Category: Medical Code(s): N39.0 - Urinary tract infection, site not specified (2) Decubitus ulcer of coccygeal region, stage 4 Current visit: Yes Status: Acute Category: Medical Code(s): L89.154 - Pressure ulcer of sacral region, stage 4 (3) Dysphagia Current visit: Yes Status: Acute Category: Medical Code(s): R13.10 - Dysphagia, unspecified (4) Low body mass index (BMI) Current visit: Yes Status: Acute Category: Medical The patient's infection will respond to the chosen ABx?: Yes Is the patient receiving the right drug, dose, and route?: Yes Could a more targeted ABx be ordered?: No
--- NOTE | 2017-12-30 22:41 | Progress Note ---
Internal Medicine - PN: Subj *Date: 12/30/17 *Time: 08:00 Interval history: pt feeling better this am Exam Vital signs and Labs for Last 24 Hours: Temp Pulse Resp BP Pulse Ox 98.5 F 94 H 16 172/86 H 93 L 12/30/17 20:00 12/30/17 20:00 12/30/17 20:00 12/30/17 20:00 12/30/17 20:00 Laboratory Results - last 24 hr 12/30/17 08:33: Vancomycin Trough 11.6 I & O for Last 24 hours: Intake & Output 12/28/17 12/29/17 12/30/17 12/31/17 11:59 11:59 11:59 11:59 Intake Total 2354 / 2354 1139 / 1139 5211 / 5211 1116 / 1116 Output Total 1100 / 1100 1600 / 1600 1500 / 1500 Balance 1254 / 1254 -461 / -461 3711 / 3711 1116 / 1116 Weight 129 lb 4 oz 129 lb 4.006 oz 129 lb 4.006 oz Microbiology Reports for the Last 24 Hours: Microbiology 12/29/17 13:04 Urine,Catheterized Urine Culture - Preliminary NO GROWTH AFTER 24 HOURS - Constitutional no acute distress, thin - *Routine HEENT Exam Head: Present: normocephalic Eye: Present: EOMI, PERRL ENT: Present: mucous membranes dry - *Routine Neck Exam Present: supple - *Routine Respiratory Exam Present: prolonged expiratory phase - *Routine Cardiovascular Exam Present: RRR, murmur, S4 - *Routine Abdominal Exam Present: soft - *Routine Extremities Exam Absent: edema - *Routine Skin Exam Present: intact - *Routine Neurological Exam Present: alert, CN II-XII intact - Routine Psychiatric Exam Present: unable to assess Assessment and Plan (1) UTI (urinary tract infection) Current visit: Yes Status: Acute Category: Medical Code(s): N39.0 - Urinary tract infection, site not specified (2) Decubitus ulcer of coccygeal region, stage 4 Current visit: Yes Status: Acute Category: Medical Code(s): L89.154 - Pressure ulcer of sacral region, stage 4 (3) Dysphagia Current visit: Yes Status: Acute Category: Medical Code(s): R13.10 - Dysphagia, unspecified (4) Low body mass index (BMI) Current visit: Yes Status: Acute Category: Medical
--- NOTE | 2017-12-31 08:35 | Progress Note ---
Internal Medicine - PN: Subj *Date: 12/31/17 *Time: 08:33 Interval history: UTI related to indwelling chronic Olivier catheter Exam Vital signs and Labs for Last 24 Hours: Temp Pulse Resp BP Pulse Ox 98.9 F 99 H 17 144/77 H 96 12/31/17 08:00 12/31/17 08:00 12/31/17 08:00 12/31/17 08:00 12/31/17 08:00 Laboratory Results - last 24 hr 12/30/17 08:33: Vancomycin Trough 11.6 I & O for Last 24 hours: Intake & Output 12/28/17 12/29/17 12/30/17 12/31/17 11:59 11:59 11:59 11:59 Intake Total 2354 / 2354 1139 / 1139 5211 / 5211 2652 / 2652 Output Total 1100 / 1100 1600 / 1600 1500 / 1500 1075 / 1075 Balance 1254 / 1254 -461 / -461 3711 / 3711 1577 / 1577 Weight 129 lb 4 oz 129 lb 4.006 oz 129 lb 4.006 oz Microbiology Reports for the Last 24 Hours: Microbiology 12/29/17 13:04 Urine,Catheterized Urine Culture - Preliminary Yeast - *Routine HEENT Exam Head: Present: normocephalic Eye: Present: PERRL ENT: Present: mucous membranes moist - *Routine Neck Exam Present: supple. Absent: lymphadenopathy - *Routine Respiratory Exam Present: wheezes - *Routine Cardiovascular Exam Present: RRR - *Routine Abdominal Exam Present: soft, normoactive bowel sounds. Absent: tenderness - *Routine Exam Comments: Olivier draining tinged urine. Per nursing Olivier was manipulated yesterday. - *Routine Extremities Exam Absent: cyanosis, clubbing, edema - *Routine Skin Exam Present: warm. Absent: rash - *Routine Neurological Exam Present: alert Assessment and Plan (1) UTI (urinary tract infection) Current visit: Yes Status: Acute Category: Medical Code(s): N39.0 - Urinary tract infection, site not specified (2) Decubitus ulcer of coccygeal region, stage 4 Current visit: Yes Status: Acute Category: Medical Code(s): L89.154 - Pressure ulcer of sacral region, stage 4 (3) Dysphagia Current visit: Yes Status: Acute Category: Medical Code(s): R13.10 - Dysphagia, unspecified (4) Low body mass index (BMI) Current visit: Yes Status: Acute Category: Medical - Assessment and plan all Dx Assessment and Plan for all problems:: Replace Olivier catheter Treat yeast in urine Rounded with Dr. Hamilton all orders per Alfonso
[2017-12-31 09:05] LABS: Microscopic, Urine URINE MICROSCOPIC (MICROSCOPIC)
[2017-12-31 09:08] LABS: Appearance,Urine CLOUDY (Clear); Bilirubin,Urine Negative (Negative); Blood, Urine 3+ (Negative); Color,Urine YELLOW (Yellow); Glucose,Urine (UA) Negative (Negative); Ketones,Urine Negative (Negative); Leukocyte Esterase,Urine 3+ (Negative); PH,Urine 7.5 (5.0-8.5); Protein,Urine 1+ (Negative); Urobilinogen,Urine 0.2 EU/dl (0.2)
[2017-12-31 09:26] LABS: Bacteria,Urine 1+ /lpf; RBC,Urine TNTC #/hpf (0-3); WBC,Urine 20-50 #/hpf (0-3); Yeast,Urine 1+ /lpf
--- NOTE | 2018-01-01 08:39 | Discharge Summary ---
Addendum entered and electronically signed by Bi Linares APRN 01/01/18 17:17: yeast uti as a diagnosis Original Note: General - General Admission date:: 12/27/17 Discharge date: 01/01/18 HPI HPI: this wm who resides at [facility] and had change in mental status and sent to ed for eval-years old white male with complex past medical history including stage IV sacral decubitus ulcer, UTI with the staff and ESBL, prostatic cancer, indwelling Olivier catheter, dementia, hypothyroidism actinic keratosis and onychomycosis Hospital Course Hospital Course: Patient's urine culture states yeast we will treat with 7 days of Diflucan. We will discharge back to [facility]. Replace Olivier yesterday urines clear and yellow with thousand milliliters in bag. Patient sitting up eating breakfast voiced no complaints today. Objective Vital signs: Temp Pulse Resp BP Pulse Ox 99.1 F 87 14 149/54 H 95 01/01/18 04:00 01/01/18 04:00 01/01/18 04:00 01/01/18 04:00 01/01/18 04:00 no acute distress - *Routine HEENT Exam Head: Present: normocephalic Eye: Present: PERRL ENT: Present: mucous membranes moist - *Routine Neck Exam Present: full ROM - *Routine Respiratory Exam Present: CTA bilaterally - *Routine Cardiovascular Exam Present: RRR - *Routine Abdominal Exam Present: soft - *Routine Extremities Exam Present: full ROM - *Routine Skin Exam Present: wounds Comments: Wound to coccyx was there prior to admission - *Routine Neurological Exam Present: alert - Routine Psychiatric Exam Present: normal affect Results Labs on day of discharge: Labs from last 24 hours 12/31/17 08:55 Urine Color Yellow Urine Appearance Cloudy Urine pH 7.5 Ur Specific [place] 1.020 Urine Protein 1+ Urine Glucose (UA) Negative Urine Ketones Negative Urine Blood 3+ Urine Nitrate Negative Urine Bilirubin Negative Urine Urobilinogen 0.2 Ur Leukocyte Esterase 3+ A Urine RBC Tntc Urine WBC 20-50 Ur Squamous Epith Cells None Urine Bacteria 1+ Urine Yeast 1+ Preliminary micro results at discharge 12/27/17 12:03 Blood Culture - Preliminary Blood NO GROWTH AFTER 48 HOURS 12/27/17 12:03 Blood Culture - Preliminary Blood NO GROWTH AFTER 48 HOURS - Additional Comments Rounded with Dr. Hamilton all orders per Alfonso DS: Diagnosis - Discharge Diagnosis (1) UTI (urinary tract infection) Status: Acute (2) Decubitus ulcer of coccygeal region, stage 4 Status: Acute (3) Dysphagia Status: Acute (4) Low body mass index (BMI) Status: Acute Discharge Plan - Patient Discharge Instructions ACTIVITY: Continue current activity DIET: continue same diet - Follow up Plan Follow up with: Joi Barnes APRN [Nurse Practitioner] - Disposition: Xfer [facility] Home Medications: Home Medications Medication Instructions Recorded Confirmed Type Acetaminophen [Tylenol Extra 1,000 mg PO Q8HP PRN 10/12/17 12/27/17 History Strength] Lactulose [Lactulose 10gm/15ml 20 gm PO DAILYP PRN 10/12/17 12/27/17 History Oral Soln] Nicotine [Nicotine Patch] 14 mg TD DAILY 10/12/17 12/27/17 History divalproex 125 mg tablet,delayed 125 mg PO BID 12/15/17 12/27/17 History release Acetic Acid 1 applicatio TOPICAL BID 12/27/17 12/27/17 History Dimethicone [Remedy Nutrashield] 1 applicatio TP DAILY 12/27/17 12/27/17 History Dimethicone [Remedy Skin Repair] 1 applicatio TP BID 12/27/17 12/27/17 History Finasteride [Proscar] 5 mg PO DAILY 12/27/17 12/27/17 History Glimepiride 1 mg PO DAILY 12/27/17 12/27/17 History Hydrocodone/Acetaminophen [[place] 1 each PO BID 12/27/17 12/27/17 History 5-325 Tablet] Nitrofurantoin Monohyd/M-Cryst 100 mg PO BID 12/27/17 12/27/17 History [Macrobid 100 mg Capsule] Tamsulosin HCl [Flomax 0.4mg 0.4 mg PO DAILY 12/27/17 12/27/17 History capsule] Triamcinolone Acetonide [Kenalog 1 applicatio TP BIDP PRN 12/27/17 12/27/17 His tory 0.1% cream 30gm tube] clonazePAM [Clonazepam] 0.5 mg PO TID 12/27/17 12/28/17 History levoFLOXacin [Levaquin 500mg 500 mg PO DAILY 12/27/17 12/27/17 History tab] risperiDONE [Risperdal 1mg Tablet] 1 mg PO BID 12/28/17 12/28/17 History Prescriptions/Medication Reconciliation: New Fluconazole [Diflucan 100mg tablet] 100 mg PO DAILY 7 Days #7 tab Continue divalproex 125 mg tablet,delayed release 125 mg PO BID Nicotine [Nicotine Patch] 14 mg TD DAILY Lactulose [Lactulose 10gm/15ml Oral Soln] 20 gm PO DAILYP PRN PRN Reason: Constipation Acetaminophen [Tylenol Extra Strength] 1,000 mg PO Q8HP PRN PRN Reason: pain Dimethicone [Remedy Skin Repair] 1 applicatio TP BID Dimethicone [Remedy Nutrashield] 1 applicatio TP DAILY Hydrocodone/Acetaminophen [[place] 5-325 Tablet] 1 each PO BID Nitrofurantoin Monohyd/M-Cryst [Macrobid 100 mg Capsule] 100 mg PO BID levoFLOXacin [Levaquin 500mg tab] 500 mg PO DAILY Glimepiride 1 mg PO DAILY Finasteride [Proscar] 5 mg PO DAILY clonazePAM [Clonazepam] 0.5 mg PO TID Triamcinolone Acetonide [Kenalog 0.1% cream 30gm tube] 1 applicatio TP BIDP PRN PRN Reason: Dry Skin risperiDONE [Risperdal 1mg Tablet] 1 mg PO BID Tamsulosin HCl [Flomax 0.4mg capsule] 0.4 mg PO DAILY Acetic Acid 1 applicatio TOPICAL BID
== END 2018-01-01 14:20 ==
LOC: 2ND 11:52 → ER 11:52 → OBSVTOIN 13:57 → 2ND 13:58
PROVIDERS: ADMIT Family Medicine; ATTEND Emergency Medicine
CPT/HCPCS: 36415; 70450; 71010; 71045; 80048; 80053; 80202; 81001; 82803; 83605; 83735; 84100; 85007; 85025; 87040; 87086; 87088; 92610; 94761; 99285; J0692; J1956; J3370